=== PATIENT | male | born 1980 | race Caucasian/White ===

== ENCOUNTER 2024-09-04 12:24 | Inpatient (IN) | payer BC, MEDICAID ==
[~2024-09-04] VITALS: Ht 175.3 cm; Wt 131.8 kg
--- NOTE | 2024-09-04 12:38 | ED.PDOC ---
History of Present Illness HPI Comments 44-year-old male brought by paramedics because he has been having abdominal pain for the past 18 hours. Not related to food. Pain is 10/10 with no radiation of the abdominal pain. Denies nausea vomiting. Unable to vomit ever since he had the gastric sleeve done many years ago. History of hypertension. Denies any other symptoms. Time Seen by MD: 12:29 Primary Care Provider: KAROLINA Reviewed Notes: Nurses Notes, Medications, Allergies Allergies: Coded Allergies: NO KNOWN ALLERGIES (Unverified , 07/24/14) Information Source: Patient, Emergency Med Personnel Mode of Arrival: EMS Severity: Moderate Timing: Hours Duration: Since onset Past Medical History PAST MEDICAL HISTORY: HTN Surgical History: Denies all surgeries Family History Family History: Unknown Social History Smoker: Non-Smoker Alcohol: Denies ETOH Use Drugs: Denies Drug Use Constitutional: denies: chills, diaphoresis, fatigue, fever, malaise, sweats, weakness, others EENTM: denies: blurred vision, double vision, ear bleeding, ear discharge, ear drainage, ear pain, ear ringing, eye pain, eye redness, hearing loss, mouth pain, mouth swelling, nasal discharge, nose bleeding, nose congestion, nose pain, photophobia, tearing, throat pain, throat swelling, voice changes, others Respiratory: denies: cough, hemoptysis, orthopnea, SOB at rest, shortness of breath, SOB with excertion, stridor, wheezing, others Cardiovascular: denies: chest pain, dizzy spells, diaphoresis, Dyspnea on exertion, edema, irregular heart beat, left arm pain, lightheadedness, palpitations, PND, syncope, others Gastrointestinal: reports: abdominal pain; denies: abdomen distended, blood streaked bowels, constipated, diarrhea, dysphagia, difficulty swallowing, hematemesis, melena, nausea, poor appetite, poor fluid intake, rectal bleeding, rectal pain, vomiting, others Genitourinary: denies: burning, dysuria, flank pain, frequency, hematuria, incontinence, penile discharge, penile sore, pain, testicle pain, testicle swelling, urgency, others Neurological: denies: dizziness, fainting, headache, left sided numbness, left sided weakness, numbness, paresthesia, pre-existing deficit, right sided numbness, right sided weakness, seizure, speech problems, tingling, tremors, weakness, others Musculoskeletal: denies: back pain, gout, joint pain, joint swelling, muscle pain, muscle stiffness, neck pain, others Integumetry: denies: bruises, change in color, change in hair/nails, dryness, laceration, lesions, lumps, rash, wounds, others Allergic/Immunocompromised: denies: Difficulty Healing, Frequent Infections, Hives, Itching, others Hematologic/Lymphatic: denies: anemia, blood clots, easy bleeding, easy bruising, swollen glands, others Endocrine: denies: excessive hunger, excessive sweating, excessive thirst, excessive urination, flushing, intolerance to cold, intolerance to heat, unexpla ined weight gain, unexplained weight loss, others Psychiatric: denies: anxiety, bipolar disorder, depression, hopeless, panic disorder, schizophrenia, sleepless, suicidal, others Physical Exam General Appearance: Moderate Distress HEENT: Normal ENT Inspection, Pharynx Normal, TMs Normal Neck: Full Range of Motion, Non-Tender, Normal, Normal Inspection Respiratory: Chest Non-Tender, Lungs Clear, No Accessory Muscle Use, No Respiratory Distress, Normal Breath Sounds Cardiovascular: No Edema, No JVD, No Murmur, No Gallop, Normal Peripheral Pulses, Regular Rate/Rhythm Breast Exam: Deferred Gastrointestinal: Distended Genitalia: Deferred Pelvic: Deferred Rectal: Deferred Extremities: No calf tenderness, Normal capillary refill, Normal inspection, Normal range of motion, Non-tender, No pedal edema Musculoskeletal : Apperance: Normal Neurologic: Alert, mop worker II-XII nml as Tested, No Motor Deficits, Normal Affect, Normal Mood, No Sensory Deficits Cerebellar Function: NOT DONE Reflexes: NOT DONE Skin: Dry, Normal Color, Warm Peripheral Pulses: 3+ Radial (R), 3+ Radial (L) Lymphatic: No Adenopathy Was a procedure done? Was a procedure done?: No Differential Dx Considerations may include: Colitis Electrolyte imbalance X-Ray, Labs, Meds, VS Patient alert. Complaining of abdominal pain. Vitals stable. Answering all questions. Abdomen is distended. Establish intravenous access. Was given fluids. Was given morphine. Was given Zofran. Continue monitoring. Time of 1ST Reevaluation: 12:31 Reevaluation 1ST: Unchanged Patient Education/Counseling: Diagnosis, Treatment, Prognosis Family Education/Counseling: No Family Present Departure 1 Departure Time of Disposition: 12:32 Impression: Primary Impression: Acute abdominal pain Disposition: 09 ADMITTED INPATIENT Admit to: Med Surg Condition: Guarded Critical Care Note Critical Care Time?: No Stability Stability form required: No Heart Score Heart Score: Heart Score Response (Comments) Value History N/A 0 EKG N/A 0 Age N/A 0 Risk Factors N/A 0 Troponin N/A 0 Total 0 CARROL HERNÁNDEZ MD September 04, 2024 12:38
[2024-09-04 13:01] LABS: Basophils # (auto) 0.1 10 ^3/uL (0-0.2); Basophils % (auto) 0.5 % (0.0-2.0); Eosinophils # (auto) 0 10 ^3/uL (0-0.8); Hematocrit 46.9 % (41.0-53.0); Hemoglobin 15.8 g/dL (13.5-17.5); Lymphocytes # (auto) 1.5 10 ^3/uL (0.4-5.4); Lymphocytes % (auto) 7.4 % (10.0-50.0); Mean Corpuscular Hgb Conc. 33.7 g/dL (32.0-36.0); Monocytes # (auto) 1.4 10 ^3/uL (0-1.3); Monocytes % (auto) 6.8 % (0.0-12.0); Neutrophils # (auto) 17.2 10 ^3/uL (1.6-8.6); Neutrophils % (auto) 85.3 % (37.0-80.0); Platelet Count (auto) 290 10^3/uL (140-450); Red Blood Cells 5.27 10^6/uL (4.5-5.90); Red Cell Distribution Width 13.9 % (11.8-14.3); White Blood Cell 20.2 10^3/uL (4.4-10.8)
[2024-09-04 13:12] LABS: Chloride 104 mmol/L (98-107); Potassium 3.9 mmol/L (3.5-5.1)
[2024-09-04 13:13] LABS: Anion Gap 10 (5-15); Calcium 10.2 mg/dL (8.7-10.4); Carbon Dioxide 21 mmol/L (20-31)
[2024-09-04] MEDS: ONDANSETRON HCL 4 MG/2 ML VIAL IV ONE ×2 (13:13→15:11)
[2024-09-04] MEDS: MORPHINE SULFATE 4 MG/ML SYR/VIAL IV ONE ×2 (13:14→15:12)
[2024-09-04 13:18] LABS: Blood Urea Nitrogen 10 mg/dL (9-23); Glucose 127 mg/dL (74-106); Lipase 34 U/L (12-53); Sodium 135 mmol/L (136-145)
[2024-09-04 13:19] LABS: BUN/Creatinine Ratio 11.5 (10.0-20.0)
--- NOTE | 2024-09-04 13:55 | DVH ---
Exam: CT CT AB PEL WO CON-NO ORAL OR IV History: colitis Comparison Study: None Technique: Multidetector spiral CT of the abdomen was performed from lung bases to pubic symphysis. I maging was performed without IV contrast. Axial, coronal and sagittal multiplanar reformats were obta ined from the axial data set by the technologist. Radiation Dose : 1. Abdomen/Pelvis: CTDIvol 26.71 mGy, DLP 1508.82 mGy*cm. Findings: Evaluation of solid organs is limited due to lack of intravenous contrast use. Lung Bases: No acute or significant lung base finding. Normal heart size. No pleural or pericardial effusion. Liver: The liver is normal in size. No focal lesions. Gallbladder and Biliary Tree: Distended gallbladder with moderate inflammatory change. Spleen: Unremarkable Pancreas: The pancreas is grossly normal in appearance. Adrenal Glands: Unremarkable Kidneys: Probable bilateral renal parapelvic cysts. Few punctate nonobstructing stones in the left k idney measuring up to 0.1 cm. Bladder: Grossly unremarkable for degree of distention. Bowel: Gastric lap band in-situ. Small bowel and colon are normal in caliber and distribution. The ap pendix is not visualized; however, no secondary findings of acute appendicitis identified. Ascites: Absent Lymphadenopathy: No mesenteric, retroperitoneal or periportal lymphadenopathy. Abdominal Wall and Mesentery: Unremarkable. Vasculature: The visualized abdominal aorta is normal in size and caliber. Evaluation of abdominal a nd pelvic vessels is limited due to lack of intravenous contrast. Pelvic Organs: Unremarkable Musculoskeletal: No aggressive focal bony lesions, acute fractures or dislocation. Degenerative disc space narrowing at L5-S1. IMPRESSION: Distended gallbladder with moderate pericholecystic inflammatory change. Findings may represent rayna cystitis. Clinical correlation advised.
--- NOTE | 2024-09-04 14:34 | DVHHP2 ---
History of Present Illness Reason for Visit: abd pain History of Present Illness 44-year-old male past medical history hypertension gallstones surgical history lap band surgery in 2012 chief complaint patient states that for 18 hours he had some upper gastric right upper quadrant abdominal pain he states it feels like a bloating gas feeling he states it started after he ate some cheese pizza with pepperoni they states the pain has not improved so he called 911 to come to the ER for an examination no vomiting no diarrhea no fever no chest pain no tearing sensation in his abdomen or chest when evaluating patient's labs and imaging normal saline was given Flagyl ceftriaxone Zofran morphine white count was 20.2 sodium was 135 glucose was 127 otherwise CBC and CMP was unremarkable CT scan of the abdomen pelvis shows cholecystitis. We will provide IV antibiotics and also we will consult General surgery for evaluation Past Medical History See HPI above Past Surgical History See HPI above Family History Reviewed, non-contributory to the management of this case. Past Social History The patient lives at home, denies smoking, alcohol or illicit drugs abuse. Review of Systems Constitutional: No: Fever, Chills, Sweats, Weakness, Malaise, Other Eyes: No: Pain, Vision change, Conjunctivae inflammation, Eyelid inflammation, Other, Redness ENT: No: Ear pain, Ear discharge, Nose pain, Nose discharge, Nose congestion, Mouth pain, Mouth swelling, Throat pain, Throat swelling, Other Respiratory: No: Cough, Dry, Shortness of breath, SOB with excertion, Wheezing, Hemoptysis, Pleuritic Pain, Sputum, Wheezing, Other Cardiovascular: No: Chest Pain, Palpitations, Orthopnea, Paroxysmal Noc. Dyspnea, Edema, Lt Headedness, Other Gastrointestinal: Nausea, Vomiting, Abdominal Pain; No: Diarrhea, Constipation, Melena, Hematochezia, Other Genitourinary: No Dysuria, No Frequency, No Incontinence, No Hematuria, No Retention, No Other Musculoskeletal: No: other, neck pain, shoulder pain, arm pain, back pain, hand pain, leg pain, foot pain Skin: No: Rash, Lesions, Jaundice, Bruising, Other Neurological: No: Weakness, Numbness, Incoordination, Change in speech, Confusion, Seizures, Other Allergies: Coded Allergies: NO KNOWN ALLERGIES (Unverified , 07/24/14) Exam Vital Signs Vital Signs Date Time Temp Pulse Resp B/P (MAP) Pulse Ox O2 Delivery O2 Flow Rate FiO2 09/04/24 13:14 114 19 140/90 09/04/24 12:55 98 09/04/24 12:55 Room Air 09/04/24 12:28 98.3 98.3 General Appearance: Alert, Oriented X3, Cooperative, No acute distress HEENT: Atraumatic, PERRLA, EOMI, Mucous membr. moist/pink Respiratory: Clear to auscultation, Normal air movement Cardiovascular: Regular rate, Normal S1, Normal S2, No murmurs Abdominal: Normal bowel sounds, Other (Guarding and rebound tenderness) Extremities: No clubbing, No cyanosis, No edema, Normal pulses, No tenderness/swelling Skin: No rashes, No breakdown, No significant lesion Neuro: Normal gait, Normal speech, Strength at 5/5 X4 ext, Normal tone, Sensation intact, Cranial nerves 3-12 NL Psych/Mental Status: Mental status NL, Mood NL Labs/Xrays CT scan abdomen pelvis shows acute cholecystitis I reviewed labs, imaging CT scan abdomen pelvis, EKG and all diagnostic studies on this patient from ED records and the medical chart Labs Test 09/04/24 14:20 09/04/24 12:52 Range/Units White Blood Count 20.2 H 4.4-10.8 10^3/uL Red Blood Count 5.27 4.5-5.90 10^6/uL Hemoglobin 15.8 13.5-17.5 g/dL Hematocrit 46.9 41.0-53.0 % Mean Corpuscular Volume 89.0 80.0-100.0 fL Mean Corpuscular Hemoglobin 30.0 28.0-32.0 pg Mean Corpuscular Hemoglobin Concent 33.7 32.0-36.0 g/dL Red Cell Distribution Width 13.9 11.8-14.3 % Platelet Count 290 140-450 10^3/uL Mean Platelet Volume 8.3 6.9-10.8 fL Neutrophils (%) (Auto) 85.3 H 37.0-80.0 % Lymphocytes (%) (Auto) 7.4 L 10.0-50.0 % Monocytes (%) (Auto) 6.8 0.0-12.0 % Eosinophils (%) (Auto) 0.0 0.0-7.0 % Basophils (%) (Auto) 0.5 0.0-2.0 % Neutrophils # (Auto) 17.2 H 1.6-8.6 10 ^3/uL Lymphocytes # (Auto) 1.5 0.4-5.4 10 ^3/uL Monocytes # (Auto) 1.4 H 0-1.3 10 ^3/uL Eosinophils # (Auto) 0 0-0.8 10 ^3/uL Basophils # (Auto) 0.1 0-0.2 10 ^3/uL Nucleated Red Blood Cells 0.0 % Sodium Level 135 L 136-145 mmol/L Potassium Level 3.9 3.5-5.1 mmol/L Chloride Level 104 98-107 mmol/L Carbon Dioxide Level 21 20-31 mmol/L Anion Gap 10 5-15 Blood Urea Nitrogen 10 9-23 mg/dL Creatinine 0.87 0.700-1.30 mg/dL Glomerular Filtration Rate Calc 110 >90 mL/min BUN/Creatinine Ratio 11.5 10.0-20.0 Serum Glucose 127 H 74-106 mg/dL Calcium Level 10.2 8.7-10.4 mg/dL Lipase 34 12-53 U/L Assessment/Plan Assessment/Plan Acute cholecystitis found on ct scan abd pelvis ordered abd us fu results N.p.o. for now ordered Ceftriaxone and Flagyl ordered IV fluids ordered General surgery consult follow-up recs ordered Protonix epigastric pain ordered Type and screen, inr ordered Morphine and Zofran acute leukocytosis from gallbladder infection cont antibiotics chronic problems gallstones lap band sx in 2011 fen/ppx protonix scd ivf ivf plan admit to medicine for general surgery evaluation and gi consult Plan discussed with: Patient Date of Service: September 04, 2024 Billing Provider: ALEX PHIPPS DNP Common Visit Codes: [id number] INP/OBS CARE (HIGH) ALEX PHIPPS DNP September 04, 2024 14:34
[2024-09-04] MEDS: SODIUM CHLORIDE 0.9% 1,000 ML IV ONE ×2 (14:57→14:58)
[2024-09-04] MEDS: metroNIDAZOLE 500MG/100ML 100 ML IV ONE (14:58)
[2024-09-04] MEDS: cefTRIAXone 1GM/50ML D5W 50 ML IV ONE (14:58)
[2024-09-04] MEDS: cloNIDine HCL 0.1 MG TAB PO ONE (15:10)
[2024-09-04] MEDS ORDERED: DOCUSATE SOD 100 MG CAP PO PRN (15:15)
[2024-09-04] MEDS ORDERED: MORPHINE SULFATE INJ 2 MG/ml SYRG IV PRN (15:15)
[2024-09-04] MEDS ORDERED: NITROGLYCERIN 0.4 MG SL TAB SL PRN (15:15)
[2024-09-04 15:18] VITALS: PULSE 117; RESP 20; O2SAT 96
[2024-09-04] MEDS: SODIUM CHLORIDE 0.9% 1,000 ML IV SCH (15:29)
[2024-09-04 15:49] LABS: INR 0.98 (0.9-1.15); Prothrombin Time 10.4 sec (9.3-11.8)
[2024-09-04] MEDS: HYDROmorphone HCL 2 MG/ML VL/or syr IV ONE ×2 (16:47→22:37)
--- NOTE | 2024-09-04 16:58 | DVH ---
INDICATION: eval for right upper quad abd pain acute rayna TECHNIQUE: Ultrasound abdomen limited. Multiple real-time sonographic images of the abdomen were obta ined. COMPARISON: None FINDINGS: Heterogeneous parenchymal changes to the liver suggesting steatosis The liver measures 20. 6 cm. No intrahepatic biliary ductal dilatation is noted. The gallbladder wall measures 5.8 mm calcified gallstones which appear non mobile No gallstones or sludge is seen. Be a small polyp in the gallbladder The common duct is not visualized. Positive sono graphic Poon's sign The right kidney measures 12.4 cm cm. No hydronephrosis. The pancreas is not well visualized due to obscuration from bowel gas. The visualized portions of the IVC and aorta are grossly unremarkable. IMPRESSION: 1. Non mobile gallstones. Mild thickened gallbladder wall. Common bile duct is not visualized. Posi tive sonographic poon's sign. 2. Liver measures 20.6 cm length steatosis noted of the parenchyma.
[2024-09-04 18:43] LABS: Urine Bacteria None Seen /hpf (None Seen)
[2024-09-04] MEDS: hydrALAZINE HCL 20 MG/ML VL IV PRN (18:48)
[2024-09-04 19:03] LABS: Urine Blood TRACE /uL (Negative); Urine Clarity Clear (Clear); Urine Color Yellow (Yellow); Urine Mucus FEW (None Seen); Urine Protein, UAD Negative (Negative); Urine Specific Gravity 1.023 (1.001-1.035); Urine Squamous Epithelial Cell None Seen /hpf (<5); Urine Urobilinogen Normal (Negative); Urine WBC 1 /HPF (0-3); Urine pH 5.5 (5.0-9.0)
[2024-09-04 19:23] VITALS: PULSE 105; RESP 19; O2SAT 97
[2024-09-04] MEDS: MORPHINE SULFATE 4 MG/ML SYR/VIAL IV PRN (20:31)
[2024-09-04] MEDS: ONDANSETRON HCL 4 MG/2 ML VIAL IV PRN (20:33)
[2024-09-04 22:24] VITALS: BP 154/95; PULSE 142; PULSE 154; RESP 20; TEMP 99.1; O2SAT 95; O2SAT 96
[2024-09-04] MEDS: metroNIDAZOLE 500MG/100ML 100 ML IV SCH (22:36)
[2024-09-04] MEDS: METOPROLOL TARTRATE 1MG/1ML-5ML VIAL IV ONE (23:46)
[2024-09-05] VITALS (8 sets, daily range): BP systolic 101–153; BP diastolic 72–92; PULSE 88–149; RESP 19–20; TEMP 97.5–99.9; O2SAT 92–98
[2024-09-05] MEDS ORDERED: MONT-8 OR (00:02)
[2024-09-05] MEDS ORDERED: LOSA-533 PO (00:02)
[2024-09-05] MEDS ORDERED: LEVO25TA6 PO (00:02)
[2024-09-05 08:31] LABS: Basophils # (auto) 0.1 10 ^3/uL (0-0.2); Basophils % (auto) 0.3 % (0.0-2.0); Eosinophils # (auto) 0 10 ^3/uL (0-0.8); Eosinophils % (auto) 0.1 % (0.0-7.0); Hematocrit 45.5 % (41.0-53.0); Hemoglobin 15.2 g/dL (13.5-17.5); Lymphocytes # (auto) 1.5 10 ^3/uL (0.4-5.4); Lymphocytes % (auto) 5.6 % (10.0-50.0); Mean Corpuscular Hgb Conc. 33.4 g/dL (32.0-36.0); Mean Corpuscular Volume 89.8 fL (80.0-100.0); Monocytes # (auto) 2.4 10 ^3/uL (0-1.3); Neutrophils # (auto) 22.8 10 ^3/uL (1.6-8.6); Platelet Count (auto) 258 10^3/uL (140-450); Red Blood Cells 5.06 10^6/uL (4.5-5.90); Red Cell Distribution Width 14.4 % (11.8-14.3); White Blood Cell 26.8 10^3/uL (4.4-10.8)
[2024-09-05] MEDS: cefTRIAXone 1GM/50ML D5W 50 ML IV SCH (08:34)
[2024-09-05] MEDS: LOSARTAN POTASSIUM 25 MG TAB PO SCH (08:35)
[2024-09-05 08:52] LABS: Alanine Aminotransferase 32 U/L (7-40); Albumin 4.3 g/dL (3.2-4.8); Alkaline Phosphatase 71 U/L (46-116); Anion Gap 9 (5-15); Aspartate Aminotransferase 24 U/L (13-40); BUN/Creatinine Ratio 7.9 (10.0-20.0); Calcium 9.9 mg/dL (8.7-10.4); Carbon Dioxide 21 mmol/L (20-31); Potassium 4.2 mmol/L (3.5-5.1); Sodium 137 mmol/L (136-145)
[2024-09-05 09:00] LABS: Chloride 107 mmol/L (98-107); Glucose 129 mg/dL (74-106)
[2024-09-05 09:02] LABS: Bilirubin, Total 1.2 mg/dL (0.2-1.0); Blood Urea Nitrogen 7 mg/dL (9-23)
[2024-09-05] MEDS: LACTATED RINGER'S 1,000 ML IV ONE (09:15)
--- NOTE | 2024-09-05 09:50 | DVH ---
CHEST RADIOGRAPH Indication: history obesity Technique: Single frontal view of the chest was obtained COMPARISON: None FINDINGS: Lines and Tubes: None Lungs: Bibasilar subsegmental atelectasis. Pleura: No effusion. No pneumothorax. Cardiomediastinal contours: Unremarkable Bones: Unremarkable IMPRESSION: Bibasilar subsegmental atelectasis.
[2024-09-05] MEDS: [UNRECOGNIZED DRUG - OTHER] PO SCH (10:00)
[2024-09-05] MEDS: ASPirin 81 mg TAB PO SCH (10:00)
[2024-09-05] MEDS: NORETHINDRONE PO SCH (10:00)
[2024-09-05] MEDS: SUCCINYLCHOLINE CHLORIDE 20 MG/ML 10ML VIAL IV ONE (10:02)
[2024-09-05] MEDS ORDERED: PROPOFOL 10 MG/ML 20 ML IV ONE (10:04)
[2024-09-05] MEDS ORDERED: HYDROmorphone HCL 2 MG/ML VL/or syr ONE (10:04)
[2024-09-05] MEDS ORDERED: fentaNYL CITRATE 5 ML ONE (10:04)
[2024-09-05] MEDS: BUPIVACAINE 0.5% P/F INJ 10 ML VIAL ONE (11:40)
[2024-09-05] MEDS: LIDOCAINE W/ EPINEPHRINE 1% 20ML VIAL ONE (11:40)
[2024-09-05] MEDS ORDERED: ROCURONIUM 10MG/ML 10ML VIAL IV ONE (12:00)
[2024-09-05] MEDS ORDERED: ePHEDrine SULFATE 50 MG/ML AMP ONE (12:00)
[2024-09-05] MEDS ORDERED: DexAMETHasone SOD PHOS 10MG/1ML VIAL INJ ONE (12:13)
[2024-09-05] MEDS ORDERED: ONDANSETRON HCL 4 MG/2 ML VIAL ONE (12:13)
[2024-09-05] MEDS ORDERED: fentaNYL CITRATE 100 MCG/2 ML VL ONE (12:25)
[2024-09-05] MEDS ORDERED: SUGAMMADEX 200mg/2ml Vial (100MG/ML) IV ONE (12:55)
[2024-09-05] MEDS: ONDANSETRON HCL 4 MG/2 ML VIAL IV ONE (13:15)
[2024-09-05] MEDS: D5W/SOD CHL 0.45%/KCL 20MEQ 1,000 ML IV SCH (13:15)
[2024-09-05] MEDS ORDERED: MEPERIDINE HCL (25 MG/ML) 1ML VIAL IV PRN (13:15)
--- NOTE | 2024-09-05 13:15 | DVHINCON2 ---
Date of service: September 05, 2024 Family History: Cerebrovascular accident (CVA) G8 FATHER FH: emphysema FH: ovarian cancer G8 MOTHER Allergies: Coded Allergies: NO KNOWN ALLERGIES (Unverified , 07/24/14) Home Meds Reported Medications Montelukast Sodium (MONTELUKAST SODIUM) 10 Mg Tab, 10 MG OR DAILY, TAB 09/05/24 Losartan Potassium (Losartan Potassium) 25 Mg Tab, 25 MG PO DAILY for 30 Days, MG 09/05/24 Levothyroxine Sodium (Levothyroxine Sodium) 25 Mcg Tab, 75 MCG PO QAM, MCG 09/05/24 Current Medications Current Medications Medications (Trade) Dose Ordered Sig/Melanie Route PRN Reason Start Time Stop Time Status Last Admin Ceftriaxone Sodium 50 ml @ 100 mls/hr DAILY@09 IV 09/05/24 09:00 09/05/24 08:34 Metronidazole 100 ml @ 100 mls/hr Q8HR IV 09/04/24 22:00 09/05/24 04:57 Sodium Chloride 1,000 ml @ 120 mls/hr Q8H20M IV 09/04/24 15:15 09/04/24 23:46 Ondansetron HCl (Zofran) 4 mg Q4HP PRN IV NAUSEA / VOMITING 09/04/24 15:15 09/04/24 20:33 Docusate Sodium (Colace Capsule) 100 mg BIDPRN PRN PO FOR CONSTIPATION 09/04/24 15:15 Morphine Sulfate 4 mg Q4HPRN PRN IV SEVERE PAIN (7-10 PAIN SCALE) 09/04/24 15:15 UNV Nitroglycerin (Ntrostat Sublingual) 0.4 mg Q5MINP PRN SL FOR CHEST PAIN 09/04/24 15:15 Morphine Sulfate 4 mg Q4HPRN PRN IV SEVERE PAIN (7-10 PAIN SCALE) 09/04/24 15:30 09/05/24 08:34 Hydralazine HCl (Apresoline Injection) 10 mg Q6HP PRN IV SBP>150 09/04/24 18:45 09/05/24 05:53 Patient Own Medication 1 DAILY PO 09/05/24 10:00 Levothyroxine Sodium (Synthroid Tablet) 75 mcg QAM@0600 PO 09/05/24 22:00 Losartan Potassium (Cozaar Tablet) 25 mg DAILY PO 09/05/24 10:00 09/05/24 08:35 Montelukast Sodium (Singulair Tablet) 10 mg HS PO 09/05/24 22:00 Aspirin 81 mg DAILY PO 09/05/24 10:00 Vital Signs Vital Signs Date Time Temp Pulse Resp B/P (MAP) Pulse Ox O2 Delivery O2 Flow Rate FiO2 09/05/24 08:47 99.2 138 20 125/79 (94) 98 99.2 09/05/24 08:00 Room Air* 0 21 Labs/Diagnostic Data Labs Test 09/05/24 08:21 09/04/24 16:20 09/04/24 13:01 09/04/24 12:52 Range/Units White Blood Count 26.8 #H 4.4-10.8 10^3/uL Red Blood Count 5.06 4.5-5.90 10^6/uL Hemoglobin 15.2 13.5-17.5 g/dL Hematocrit 45.5 41.0-53.0 % Mean Corpuscular Volume 89.8 80.0-100.0 fL Mean Corpuscular Hemoglobin 30.0 28.0-32.0 pg Mean Corpuscular Hemoglobin Concent 33.4 32.0-36.0 g/dL Red Cell Distribution Width 14.4 H 11.8-14.3 % Platelet Count 258 140-450 10^3/uL Mean Platelet Volume 8.1 6.9-10.8 fL Neutrophils (%) (Auto) 85.0 H 37.0-80.0 % Lymphocytes (%) (Auto) 5.6 L 10.0-50.0 % Monocytes (%) (Auto) 9.0 0.0-12.0 % Eosinophils (%) (Auto) 0.1 0.0-7.0 % Basophils (%) (Auto) 0.3 0.0-2.0 % Neutrophils # (Auto) 22.8 H 1.6-8.6 10 ^3/uL Lymphocytes # (Auto) 1.5 0.4-5.4 10 ^3/uL Monocytes # (Auto) 2.4 H 0-1.3 10 ^3/uL Eosinophils # (Auto) 0 0-0.8 10 ^3/uL Basophils # (Auto) 0.1 0-0.2 10 ^3/uL Nucleated Red Blood Cells 0.0 % Sodium Level 137 136-145 mmol/L Potassium Level 4.2 3.5-5.1 mmol/L Chloride Level 107 98-107 mmol/L Carbon Dioxide Level 21 20-31 mmol/L Anion Gap 9 5-15 Blood Urea Nitrogen 7 L 9-23 mg/dL Creatinine 0.89 0.700-1.30 mg/dL Glomerular Filtration Rate Calc 109 >90 mL/min BUN/Creatinine Ratio 7.9 L 10.0-20.0 Serum Glucose 129 H 74-106 mg/dL Calcium Level 9.9 8.7-10.4 mg/dL Total Bilirubin 1.2 H 0.2-1.0 mg/dL Aspartate Amino Transferase (AST) 24 13-40 U/L Alanine Aminotransferase (ALT) 32 7-40 U/L Alkaline Phosphatase 71 46-116 U/L Total Protein 7.0 5.7-8.2 g/dL Albumin 4.3 3.2-4.8 g/dL Lactic Acid Level 1.4 0.4-2.0 mmol/L Urine Color Yellow Yellow Urine Clarity Clear Clear Urine pH 5.5 5.0-9.0 Urine Specific Maurice 1.023 1.001-1.035 Urine Protein Negative Negative Urine Ketones Negative Negative Urine Blood Trace H Negative /uL Urine Nitrite Negative Negative Urine Bilirubin Negative Negative Urine Urobilinogen Normal Negative mg/dL Urine Leukocyte Esterase Negative Negative /uL Urine RBC <1 0 - 3 /hpf Urine Microscopic WBC 1 0-3 /HPF Urine Squamous Epithelial Cells None seen <5 /hpf Urine Bacteria None seen None Seen /hpf Urine Mucus Few None Seen Urine Glucose Normal Normal mg/dL Prothrombin Time 10.4 9.3-11.8 sec Prothrombin Time INR 0.98 0.9-1.15 Lipase 34 12-53 U/L Assessment patient with sepsis secondary to cholelithiasis ans cholecystitis, exquisitely tender abdomen, needs emergency cholecystectomy, WBC markedly elevated, tachycardia. laparoscopic possibly open cholecystectomy, risks and complications explained in detail/. Plan discussed with: Patient, Spouse SERAFIN LUNA MD September 05, 2024 13:15
[2024-09-05] MEDS: ACETAMINOPHEN IV 1000 MG/100ML (10MG/ML) IV PRN (13:40)
[2024-09-05] MEDS: HYDROmorphone HCL 2 MG/ML VL/or syr IV PRN ×2 (13:59→18:39)
--- NOTE | 2024-09-05 15:46 | DVHOP ---
DATE OF SURGERY: 09/05/2024 PREOPERATIVE DIAGNOSES: Sepsis, cholelithiasis, cholecystitis. POSTOPERATIVE DIAGNOSES: Sepsis, cholelithiasis, cholecystitis. SURGEON: Jigar Bradshaw MD CORE MICROARCHITECT: Jose J Carlin. ANESTHESIA: General endotracheal, Dr. Bailey PROCEDURE: Laparoscopy, laparoscopic cholecystectomy. DESCRIPTION OF PROCEDURE: The patient had complained of abdominal pain preoperatively for several days, was admitted to the hospital, had a white count of 27,000, exquisitely tender abdomen, and was taken to the operating room urgently for a cholecystectomy to treat documented cholelithiasis and cholecystitis. Under general endotracheal anesthesia with the skin prepped and draped, a supraumbilical incision was made. Veress needle inserted by the hanging drop technique in order to establish pneumoperitoneum to 15 mmHg pressure by insufflation with carbon dioxide. With the abdomen fully distended, the needle was removed and replaced with a 5 mm trocar port through which a 0-degree viewing laparoscope was inserted under direct vision; 5 and 10 mm ports inserted at the right anterior axillary line at the level of the umbilicus and the subxiphoid midline skin respectively. Instrumentation was then introduced and laparoscopy was conducted. The laparoscopic examination was hampered by the patient's morbid obesity. However, no obvious unexpected pathology was encountered. The gallbladder was acutely inflamed, and areas were affected by gangrene. The gallbladder was aspirated of bile and the vial was submitted for cultures and sensitivity. Subsequently, with a great deal of difficulty due to the huge enlargement of the gallbladder as well as the enormous hepatomegaly and the patient's obesity, it was very difficult. However, we were able to visualize the cystic duct and cystic artery. The structures were skeletonized and dissected down to the hepatocystic triangle system to minimize the potential for an inadvertent injury to the common bile duct. The cystic duct and cystic artery were then divided between metallic clips and the gallbladder, which was partially intrahepatic, was resected from its liver bed and removed from the peritoneal cavity. The patient's right upper quadrant was profusely irrigated. Irrigant was aspirated. Hemostasis was meticulously accomplished and found to be complete. At the termination of the procedure, there was no evidence of bleeding from either the liver bed or from the port sites. A 10 mm Riki-Khan drain was placed underneath the right lobe of the liver and exteriorized through the 5 mm port site on the right flank and secured with a 2-0 nylon suture. The wounds were approximated by Monocryl sutures, Dermabond glue, and Steri-Strips. The patient remained stable throughout the procedure and left the operating room following an accurate needle and sponge counts. Family was thoroughly informed in the waiting area. MD KERON Bowens/HOLLY/ARJUN TID: [id number] RECEIPT: [id number]
[2024-09-05] MEDS: MONTELUKAST SODIUM 10 MG TAB PO SCH (21:10)
--- NOTE | 2024-09-05 22:29 | DVHPN2 ---
Reviewed: Care Plan, H&P, Labs, Medications, Previous Orders, Radiology Changes from previous H/P or p: No Changes General: Per HPI Eyes: No Pain, No Vision change, No Conjunctivae inflammation, No Eyelid inflammation, No Other, No Redness ENT: No Ear pain, No Ear discharge, No Nose pain, No Nose discharge, No Nose congestion, No Mouth pain, No Mouth swelling, No Throat pain, No Throat swelling, No Other Cardiovascular: No Chest Pain, No Palpitations, No Orthopnea, No Paroxysmal Noc. Dyspnea, No Edema, No Lt Headedness, No Other Respiratory: No Cough, No Dry, No Shortness of breath, No SOB with excertion, No Wheezing, No Hemoptysis, No Pleuritic Pain, No Sputum, No Other Gastrointestinal: Nausea, Vomiting, Abdominal Pain; No Diarrhea, No Constipation, No Melena, No Hematochezia, No Other Genitourinary: No Dysuria, No Frequency, No Incontinence, No Hematuria, No Retention, No Other Musculoskeletal: No other, No neck pain, No shoulder pain, No arm pain, No back pain, No hand pain, No leg pain, No foot pain Skin: No Rash, No Lesions, No Jaundice, No Bruising, No Other Objective Vitals Vital Signs Date Time Temp Pulse Resp B/P (MAP) Pulse Ox O2 Delivery O2 Flow Rate FiO2 09/05/24 21:00 97.6 125 20 137/87 (104) 96 97.6 09/05/24 20:00 Room Air* 0 21 Intake/Output Intake and Output 09/05/24 07:00 Intake Total 2550 ml Output Total 600 ml Balance 1950 ml Intake Oral 0 ml IV Total 2550 ml Output Urine Total 600 ml # Voids 2 General Appearance: Alert, Oriented X3, Cooperative Cardiovascular: Regular rate, Normal S1, Normal S2 Abdomen: Normal bowel sounds, Soft Neuro: Normal speech Medications Current Medications Medications Dose Ordered Sig/Melanie Route Start Time Stop Time Status Last Admin Dose Admin Ceftriaxone Sodium 50 ml @ 100 mls/hr DAILY@09 IV 09/05/24 09:00 09/05/24 08:34 100 MLS/HR Metronidazole 100 ml @ 100 mls/hr Q8HR IV 09/04/24 22:00 09/05/24 21:10 100 MLS/HR Ondansetron HCl 4 mg Q4HP PRN IV 09/04/24 15:15 09/04/24 20:33 4 MG Docusate Sodium 100 mg BIDPRN PRN PO 09/04/24 15:15 Morphine Sulfate 4 mg Q4HPRN PRN IV 09/04/24 15:15 UNV Nitroglycerin 0.4 mg Q5MINP PRN SL 09/04/24 15:15 Hydralazine HCl 10 mg Q6HP PRN IV 09/04/24 18:45 09/05/24 05:53 10 MG Patient Own Medication 1 DAILY PO 09/05/24 10:00 Levothyroxine Sodium 75 mcg QAM@0600 PO 09/05/24 22:00 Losartan Potassium 25 mg DAILY PO 09/05/24 10:00 09/05/24 08:35 25 MG Montelukast Sodium 10 mg HS PO 09/05/24 22:00 09/05/24 21:10 10 MG Aspirin 81 mg DAILY PO 09/05/24 10:00 Potassium Chloride/Dextrose/ Sod Cl 1,000 ml @ 120 mls/hr Q8H20M IV 09/05/24 13:15 09/05/24 13:15 120 MLS/HR Hydromorphone HCl 1 mg Q6HR PRN IV 09/05/24 18:30 09/05/24 18:39 1 MG Laboratory Results Laboratory Tests 09/05/24 08:21 Chemistry Test 09/05/24 08:21 Albumin 4.3 g/dL (3.2-4.8) Calcium Level 9.9 mg/dL (8.7-10.4) Total Protein 7.0 g/dL (5.7-8.2) LFT Test 09/05/24 08:21 Alanine Aminotransferase (ALT) 32 U/L (7-40) Alkaline Phosphatase 71 U/L (46-116) Aspartate Amino Transferase (AST) 24 U/L (13-40) Total Bilirubin 1.2 mg/dL (0.2-1.0) H Urinalysis Test 09/04/24 13:01 Urine Color Yellow (Yellow) Urine Clarity Clear (Clear) Urine pH 5.5 (5.0-9.0) Urine Specific [place] 1.023 (1.001-1.035) Urine Protein Negative (Negative) Urine Ketones Negative (Negative) Urine Blood Trace /uL (Negative) H Urine Nitrite Negative (Negative) Urine Bilirubin Negative (Negative) Urine Urobilinogen Normal mg/dL (Negative) Urine Leukocyte Esterase Negative /uL (Negative) Urine RBC <1 /hpf (0 - 3) Urine Microscopic WBC 1 /HPF (0-3) Urine Squamous Epithelial Cells None seen /hpf (<5) Urine Bacteria None seen /hpf (None Seen) Urine Mucus Few (None Seen) Urine Glucose Normal mg/dL (Normal) Microbiology Microbiology Date/Time Source Procedure Growth Status 09/04/24 14:20 Blood Blood Culture - Preliminary NO GROWTH AFTER 24 HOURS OF INCUBATION. Resulted Labs and/or images reviewed: Labs reviewed by me, Image(s) reviewed by me Assessment/Plan Assessment/Plan 44-year-old male past medical history hypertension gallstones surgical history lap band surgery in 2011 chief complaint patient states that for 18 hours he had some upper gastric right upper quadrant abdominal pain he states it feels like a bloating gas feeling he states it started after he ate some cheese pizza with pepperoni they states the pain has not improved so he called 911 to come to the ER for an examination no vomiting no diarrhea no fever no chest pain no tearing sensation in his abdomen or chest when evaluating patient's labs and imaging normal saline was given Flagyl ceftriaxone Zofran morphine white count was 20.2 sodium was 135 glucose was 127 otherwise CBC and CMP was unremarkable CT scan of the abdomen pelvis shows cholecystitis. Acute cholecystitis acute leukocytosis from gallbladder infection gallstones lap band sx in 2011 abd pain 09/05/2024 discussed with family member at bedside pt was in OR right after round nursing requested for Dilaudid, agreed Plan discussed with: Other (family member at bedside) My Orders Orders - GABRIELA FUENTES DO Procedure Category Date Status Time Hydromorphone PHA 09/05/24 In Process Injection (Dilaudid 18:30 Date of Service: September 05, 2024 Billing Provider: GABRIELA FUENTES DO Common Visit Codes: [id number] INP/OBS CARE(HIGH) GABRIELA FUENTES DO September 05, 2024 22:29
[2024-09-06] VITALS (8 sets, daily range): BP systolic 127–143; BP diastolic 80–95; PULSE 98–123; RESP 17–21; TEMP 97.5–98.6; O2SAT 95–98
[2024-09-06] MEDS: LEVOTHYROXINE SODIUM 25 MCG TAB PO SCH (00:50)
--- NOTE | 2024-09-06 07:30 | DVHPN2 ---
Subjective Date Seen: September 06, 2024 Post op day Post op day: 1 Patient reports: Other (nausea) General: Normal HNT: Normal Cardiovascular: Normal Respiratory: Normal Gastrointestinal: Nausea Genitourinary: Normal Musculoskeletal: Normal Neurological: Normal Objective Vitals Vital Sign Date Time Temp Pulse Resp B/P (MAP) Pulse Ox O2 Delivery O2 Flow Rate FiO2 09/06/24 05:00 97.6 114 20 143/93 (110) 98 97.6 09/05/24 20:00 Room Air* 0 21 Total Intake and Output 09/05/24 09/05/24 09/06/24 15:00 23:00 07:00 Intake Total 430 ml 460 ml 1025 ml Output Total 400 ml Balance 430 ml 60 ml 1025 ml Medications Current Medications Medications Dose Ordered Sig/Melanie Route Start Time Stop Time Status Last Admin Dose Admin Ceftriaxone Sodium 50 ml @ 100 mls/hr DAILY@09 IV 09/05/24 09:00 09/05/24 08:34 100 MLS/HR Metronidazole 100 ml @ 100 mls/hr Q8HR IV 09/04/24 22:00 09/06/24 05:30 100 MLS/HR Ondansetron HCl 4 mg Q4HP PRN IV 09/04/24 15:15 09/06/24 06:06 4 MG Docusate Sodium 100 mg BIDPRN PRN PO 09/04/24 15:15 Morphine Sulfate 4 mg Q4HPRN PRN IV 09/04/24 15:15 UNV Nitroglycerin 0.4 mg Q5MINP PRN SL 09/04/24 15:15 Hydralazine HCl 10 mg Q6HP PRN IV 09/04/24 18:45 09/05/24 05:53 10 MG Patient Own Medication 1 DAILY PO 09/05/24 10:00 Levothyroxine Sodium 75 mcg QAM@0600 PO 09/05/24 22:00 09/06/24 05:31 75 MCG Losartan Potassium 25 mg DAILY PO 09/05/24 10:00 09/05/24 08:35 25 MG Montelukast Sodium 10 mg HS PO 09/05/24 22:00 09/05/24 21:10 10 MG Aspirin 81 mg DAILY PO 09/05/24 10:00 Potassium Chloride/Dextrose/ Sod Cl 1,000 ml @ 120 mls/hr Q8H20M IV 09/05/24 13:15 09/05/24 13:15 120 MLS/HR Hydromorphone HCl 1 mg Q6HR PRN IV 09/05/24 18:30 09/06/24 00:51 1 MG General: Normal, Well developed, Well nourished, Mild distress, Obese Head/Eyes: Normal ENT: Normal Neck: Normal Lungs: Normal, Normal inspection Cardiovascular: Normal, Regular rate and rhythm Abdomen quadrants: RUQ Tenderness; LUQ Tenderness; LLQ Tenderness; RLQ Tenderness Extremities: Normal, No peripheral edema Skin: Normal, Normal inspection Neurological: Normal Labs and Microbiology Laboratory Tests 09/05/24 08:21 Test 09/05/24 08:21 Range/Units Serum Glucose 129 H 74-106 mg/dL Ass/Plan Labs and/or images reviewed: Labs reviewed by me, Image(s) reviewed by me Problems(with codes): (1) Cholecystitis (2) Cholecystitis with cholelithiasis (3) S/P cholecystectomy (4) Abdominal pain Assessment/Plan 09/06/24 s/p laparoscopic cholecystectomy abdomen appropriately tender, patient complaint of nausea when he has pain wound clean dry and intact passing flatus, NO BM Plan: patient to ambulate continue current treatment Prognosis: Good Plan discussed with patient, Dr. Bradshaw Visit Coding Surgery Date of Service if different f: September 06, 2024 Billing Provider: SERAFIN BRADSHAW MD Surgery Visit Codes: [id number] INP/OBS CARE(HIGH) JAUN BONILLA [employer] September 06, 2024 07:30
[2024-09-06 08:25] LABS: Basophils # (auto) 0 10 ^3/uL (0-0.2); Basophils % (auto) 0.1 % (0.0-2.0); Eosinophils # (auto) 0 10 ^3/uL (0-0.8); Eosinophils % (auto) 0.1 % (0.0-7.0); Hematocrit 42.2 % (41.0-53.0); Lymphocytes # (auto) 1.1 10 ^3/uL (0.4-5.4); Lymphocytes % (auto) 5.3 % (10.0-50.0); Mean Corpuscular Hemoglobin 30.2 pg (28.0-32.0); Mean Corpuscular Hgb Conc. 33.1 g/dL (32.0-36.0); Monocytes # (auto) 1.8 10 ^3/uL (0-1.3); Monocytes % (auto) 8.3 % (0.0-12.0); Neutrophils # (auto) 18.4 10 ^3/uL (1.6-8.6); Neutrophils % (auto) 86.2 % (37.0-80.0); Platelet Count (auto) 227 10^3/uL (140-450); Red Blood Cells 4.64 10^6/uL (4.5-5.90); Red Cell Distribution Width 14.1 % (11.8-14.3); White Blood Cell 21.3 10^3/uL (4.4-10.8)
[2024-09-06 09:39] LABS: Platelet Estimate Adequate; RBC Morphology Normal
--- NOTE | 2024-09-06 10:22 | DVHINCON2 ---
Date of service: September 05, [address] sandoval Reason for Consultation Hypoxemic respiratory failure History of Present Illness HPI The patient is a 44-year-old gentleman with multiple medical problems morbid obesity severe obstructive sleep apnea and uvuloplasty who presented with right upper quadrant pain and infected gallbladder. Patient underwent laparoscopic cholecystectomy and returned back to the floor for recovery. He is currently on oxygen at 4 L and complaining of severe dyspnea. Chest x-ray shows atelectasis Home Meds Reported Medications Montelukast Sodium (MONTELUKAST SODIUM) 10 Mg Tab, 10 MG OR DAILY, TAB 09/05/24 Losartan Potassium (Losartan Potassium) 25 Mg Tab, 25 MG PO DAILY for 30 Days, MG 09/05/24 Levothyroxine Sodium (Levothyroxine Sodium) 25 Mcg Tab, 75 MCG PO QAM, MCG 09/05/24 Past Medical History Cardiac: HTN Pulmonary: Asthma Central Nervous System: No pertinent Hx GI: No pertinent Hx Hemotology/Oncology: No pertinent Hx Hepatobiliary: No pertinent Hx Psychiatric: No pertinent Hx Musculoskeletal: No pertinent Hx Rheumotologic: No pertinent Hx Infectious Disease: No peritnent Hx ENT: No pertinent Hx Renal/: No pertinent Hx Endocrine: No pertinent Hx Dermatology: No pertinent Hx Past Surgical History: No pertinent Hx Family History: No pertinent Hx Patient Family History: Cerebrovascular accident (CVA) G8 FATHER FH: emphysema FH: ovarian cancer G8 MOTHER Review of Systems Constitutional: Weakness Ears, Nose, & Throat: No symptom reported Eyes: No symptom reported Pulmonary/Respiratory: Dyspnea, Cough Cardiovascular: No symptom reported Gastrointestinal: Abdominal Pain Genitourinary: No symptom reported Musculoskeletal: No symptom reported Skin: No symptom reported Psychiatric: No symptom reported Endocrine: No symptom reported Hemotologic/Lymphatic: No symptom reported H&P Exam Vital Signs Vital Signs Date Time Temp Pulse Resp B/P (MAP) Pulse Ox O2 Delivery O2 Flow Rate FiO2 09/06/24 09:12 98.6 120 17 132/95 (107) 95 98.6 09/06/24 08:00 Room Air* 0 21 General Appeara: Well developed, Well nourished, Normal Appearance, Obese Head Exam: Normal inspection Neck Exam: Normal inspection, Non-tender, Normal alignment Eye Exam: bilateral eye Normal inspection, bilateral eye PERRL Ear Exam: bilateral ear Auricle normal, bilateral ear Canal normal Nasal Exam: Normal inspection Mouth: Normal Inspection Pulmonary/Respiratory: Normal inspection, Normal breath sounds Cardiovascular/Chest: Normal inspection Peripheral Pulses: 4+ carotid (R), 4+ carotid (L) Rectal Exam: Deferred Labs/Xrays Labs Test 09/06/24 07:00 09/05/24 08:21 09/04/24 16:20 09/04/24 13:01 Range/Units White Blood Count 21.3 H 4.4-10.8 10^3/uL Red Blood Count 4.64 4.5-5.90 10^6/uL Hemoglobin 14.0 13.5-17.5 g/dL Hematocrit 42.2 41.0-53.0 % Mean Corpuscular Volume 91.0 80.0-100.0 fL Mean Corpuscular Hemoglobin 30.2 28.0-32.0 pg Mean Corpuscular Hemoglobin Concent 33.1 32.0-36.0 g/dL Red Cell Distribution Width 14.1 11.8-14.3 % Platelet Count 227 140-450 10^3/uL Mean Platelet Volume 8.8 6.9-10.8 fL Neutrophils (%) (Auto) 86.2 H 37.0-80.0 % Lymphocytes (%) (Auto) 5.3 L 10.0-50.0 % Monocytes (%) (Auto) 8.3 0.0-12.0 % Eosinophils (%) (Auto) 0.1 0.0-7.0 % Basophils (%) (Auto) 0.1 0.0-2.0 % Neutrophils # (Auto) 18.4 H 1.6-8.6 10 ^3/uL Lymphocytes # (Auto) 1.1 0.4-5.4 10 ^3/uL Monocytes # (Auto) 1.8 H 0-1.3 10 ^3/uL Eosinophils # (Auto) 0 0-0.8 10 ^3/uL Basophils # (Auto) 0 0-0.2 10 ^3/uL Nucleated Red Blood Cells 0.0 % Platelet Estimate Adequate Clumped Platelets Few Red Blood Cell Morphology Normal Total Bilirubin 0.6 0.2-1.0 mg/dL Sodium Level 137 136-145 mmol/L Potassium Level 4.2 3.5-5.1 mmol/L Chloride Level 107 98-107 mmol/L Carbon Dioxide Level 21 -31 mmol/L Anion Gap 9 5-15 Blood Urea Nitrogen 7 L 9-23 mg/dL Creatinine 0.89 0.700-1.30 mg/dL Glomerular Filtration Rate Calc 109 >90 mL/min BUN/Creatinine Ratio 7.9 L 10.0-20.0 Serum Glucose 129 H 74-106 mg/dL Calcium Level 9.9 8.7-10.4 mg/dL Aspartate Amino Transferase (AST) 24 13-40 U/L Alanine Aminotransferase (ALT) 32 7-40 U/L Alkaline Phosphatase 71 46-116 U/L Total Protein 7.0 5.7-8.2 g/dL Albumin 4.3 3.2-4.8 g/dL Lactic Acid Level 1.4 0.4-2.0 mmol/L Urine Color Yellow Yellow Urine Clarity Clear Clear Urine pH 5.5 5.0-9.0 Urine Specific [place] 1.023 1.001-1.035 Urine Protein Negative Negative Urine Ketones Negative Negative Urine Blood Trace H Negative /uL Urine Nitrite Negative Negative Urine Bilirubin Negative Negative Urine Urobilinogen Normal Negative mg/dL Urine Leukocyte Esterase Negative Negative /uL Urine RBC <1 0 - 3 /hpf Urine Microscopic WBC 1 0-3 /HPF Urine Squamous Epithelial Cells None seen <5 /hpf Urine Bacteria None seen None Seen /hpf Urine Mucus Few None Seen Urine Glucose Normal Normal mg/dL Test 09/04/24 12:52 Range/Units Prothrombin Time 10.4 9.3-11.8 sec Prothrombin Time INR 0.98 0.9-1.15 Lipase 34 12-53 U/L Microbiology Date/Time Source Procedure Growth Status 09/04/24 14:20 Blood Blood Culture - Preliminary NO GROWTH AFTER 24 HOURS OF INCUBATION. Resulted Assessment/Plan Plan Acute hypoxemic respiratory failure Morbid obesity Severe obstructive sleep apnea Atelectasis Acute cholecystitis status post cholecystectomy Patient is seen and examined Management plan supplemental O2 Keep sats above 90% Broad-spectrum antibiotics Rocephin Pain control Incentive spirometry Postop care Patient would benefit from a follow-up with the full set of PFTs when more stable Plan discussed with: Patient JONA BARCLAY MD September 06, 2024 10:21
--- NOTE | 2024-09-06 10:23 | DVHPN2 ---
Progress Note - Dictate Date Seen: September 06, 2024 Has the PT tested + for MRSA If YES, has PT been informed?: No Medical Necessity Reason Pt with a Central, PICC or Fol: No vital signs Vital Sign Date Time Temp Pulse Resp B/P (MAP) Pulse Ox O2 Delivery O2 Flow Rate FiO2 09/06/24 09:12 98.6 120 17 132/95 (107) 95 98.6 09/06/24 08:00 Room Air* 0 21 Total Intake and Output 09/05/24 09/05/24 09/06/24 14:59 22:59 06:59 Intake Total 430 ml 460 ml 1025 ml Output Total 400 ml Balance 430 ml 60 ml 1025 ml medications Current Medications Medications Dose Ordered Sig/Melanie Route Start Time Stop Time Status Last Admin Dose Admin Ceftriaxone Sodium 50 ml @ 100 mls/hr DAILY@09 IV 09/05/24 09:00 09/06/24 08:58 100 MLS/HR Metronidazole 100 ml @ 100 mls/hr Q8HR IV 09/04/24 22:00 09/06/24 05:30 100 MLS/HR Ondansetron HCl 4 mg Q4HP PRN IV 09/04/24 15:15 09/06/24 06:06 4 MG Docusate Sodium 100 mg BIDPRN PRN PO 09/04/24 15:15 Morphine Sulfate 4 mg Q4HPRN PRN IV 09/04/24 15:15 UNV Nitroglycerin 0.4 mg Q5MINP PRN SL 09/04/24 15:15 Hydralazine HCl 10 mg Q6HP PRN IV 09/04/24 18:45 09/05/24 05:53 10 MG Patient Own Medication 1 DAILY PO 09/05/24 10:00 Levothyroxine Sodium 75 mcg QAM@0600 PO 09/05/24 22:00 09/06/24 05:31 75 MCG Losartan Potassium 25 mg DAILY PO 09/05/24 10:00 09/06/24 08:59 25 MG Montelukast Sodium 10 mg HS PO 09/05/24 22:00 09/05/24 21:10 10 MG Aspirin 81 mg DAILY PO 09/05/24 10:00 09/06/24 08:59 81 MG Potassium Chloride/Dextrose/ Sod Cl 1,000 ml @ 120 mls/hr Q8H20M IV 09/05/24 13:15 09/05/24 13:15 120 MLS/HR Hydromorphone HCl 1 mg Q6HR PRN IV 09/05/24 18:30 09/06/24 07:27 1 MG laboratory and microbiology Laboratory Tests 09/06/24 07:00 09/05/24 08:21 Test 09/05/24 08:21 Range/Units Serum Glucose 129 H 74-106 mg/dL Assessment/Plan Acute hypoxemic respiratory failure Morbid obesity Severe obstructive sleep apnea Atelectasis Acute cholecystitis status post cholecystectomy Patient is seen and examined Management plan supplemental O2 Keep sats above 90% Broad-spectrum antibiotics Rocephin Pain control Incentive spirometry Postop care dvt proph Plan discussed with: Patient JONA BARCLAY MD September 06, 2024 10:23
[2024-09-07] VITALS (8 sets, daily range): BP systolic 103–129; BP diastolic 56–89; PULSE 87–111; RESP 18–20; TEMP 97–98.3; O2SAT 95–98
--- NOTE | 2024-09-07 12:31 | DVHPN2 ---
Progress Note Date Seen: Sep 07, 2024 Has the PT tested + for MRSA If YES, has PT been informed?: No Medical Necessity Reason Pt with a Central, PICC or Fol: No Objective vital signs Vital Sign Date Time Temp Pulse Resp B/P (MAP) Pulse Ox O2 Delivery O2 Flow Rate FiO2 09/07/24 09:25 87 18 129/82 09/07/24 09:00 97.5 98 97.5 09/07/24 07:51 Room Air* 0 21 Total Intake and Output 09/06/24 09/06/24 09/07/24 15:00 23:00 07:00 Intake Total 250 ml 700 ml 1300 ml Output Total 50 ml 25 ml Balance 200 ml 675 ml 1300 ml medications Current Medications Medications Dose Ordered Sig/Melanie Route Start Time Stop Time Status Last Admin Dose Admin Ceftriaxone Sodium 50 ml @ 100 mls/hr DAILY@09 IV 09/05/24 09:00 09/07/24 08:43 100 MLS/HR Metronidazole 100 ml @ 100 mls/hr Q8HR IV 09/04/24 22:00 09/07/24 05:55 100 MLS/HR Ondansetron HCl 4 mg Q4HP PRN IV 09/04/24 15:15 09/06/24 06:06 4 MG Docusate Sodium 100 mg BIDPRN PRN PO 09/04/24 15:15 Morphine Sulfate 4 mg Q4HPRN PRN IV 09/04/24 15:15 UNV Nitroglycerin 0.4 mg Q5MINP PRN SL 09/04/24 15:15 Hydralazine HCl 10 mg Q6HP PRN IV 09/04/24 18:45 09/05/24 05:53 10 MG Levothyroxine Sodium 75 mcg QAM@0600 PO 09/05/24 22:00 09/07/24 05:52 75 MCG Losartan Potassium 25 mg DAILY PO 09/05/24 10:00 09/07/24 08:43 25 MG Montelukast Sodium 10 mg HS PO 09/05/24 22:00 09/06/24 21:10 10 MG Aspirin 81 mg DAILY PO 09/05/24 10:00 09/07/24 08:43 81 MG Hydromorphone HCl 1 mg Q6HR PRN IV 09/05/24 18:30 09/07/24 08:55 1 MG laboratory and microbiology Laboratory Tests 09/06/24 07:00 09/05/24 08:21 Test 09/05/24 08:21 Range/Units Serum Glucose 129 H 74-106 mg/dL Problem List/Assessment/Plan Problem List/Assessment/Plan 09/07/24 DOING WELL, HAS AMBULATED, TOLERATING PO LIQUIDS,BETH DRAINAGE NON BILIOUS, WOUNDS CLEAR AND WELL APPROXIMATED Plan discussed with: Patient Dietary Evaluation Review Recommendations by RD: Dietary education by RD Comments: 1) Encourage optimal PO intake 2) Advance to low-fat diet when medically feasible, pending ST approval 3) Collect HbA1C 4) Refer to outpatient RD for weight management 5) Follow-up with gastroenterology 6) Continue to monitor I&O, labs, and skin integrity Expected Outcomes/Goals: 1) appetite and labs to improve 2) diet to advance 3) f/u in 2-3 days SERAFIN LUNA MD Sep 07, 2024 12:31
--- NOTE | 2024-09-07 14:42 | DVHPN2 ---
Progress Note - Dictate Date Seen: Sep 07, 2024 Has the PT tested + for MRSA If YES, has PT been informed?: No Medical Necessity Reason Pt with a Central, PICC or Fol: No vital signs Vital Sign Date Time Temp Pulse Resp B/P (MAP) Pulse Ox O2 Delivery O2 Flow Rate FiO2 09/07/24 13:00 98.3 100 20 117/80 (92) 95 98.3 09/07/24 07:51 Room Air* 0 21 Total Intake and Output 09/06/24 09/06/24 09/07/24 15:00 23:00 07:00 Intake Total 250 ml 700 ml 1300 ml Output Total 50 ml 25 ml Balance 200 ml 675 ml 1300 ml medications Current Medications Medications Dose Ordered Sig/Melanie Route Start Time Stop Time Status Last Admin Dose Admin Ceftriaxone Sodium 50 ml @ 100 mls/hr DAILY@09 IV 09/05/24 09:00 09/07/24 08:43 100 MLS/HR Metronidazole 100 ml @ 100 mls/hr Q8HR IV 09/04/24 22:00 09/07/24 14:07 100 MLS/HR Ondansetron HCl 4 mg Q4HP PRN IV 09/04/24 15:15 09/06/24 06:06 4 MG Docusate Sodium 100 mg BIDPRN PRN PO 09/04/24 15:15 Morphine Sulfate 4 mg Q4HPRN PRN IV 09/04/24 15:15 UNV Nitroglycerin 0.4 mg Q5MINP PRN SL 09/04/24 15:15 Hydralazine HCl 10 mg Q6HP PRN IV 09/04/24 18:45 09/05/24 05:53 10 MG Levothyroxine Sodium 75 mcg QAM@0600 PO 09/05/24 22:00 09/07/24 05:52 75 MCG Losartan Potassium 25 mg DAILY PO 09/05/24 10:00 09/07/24 08:43 25 MG Montelukast Sodium 10 mg HS PO 09/05/24 22:00 09/06/24 21:10 10 MG Aspirin 81 mg DAILY PO 09/05/24 10:00 09/07/24 08:43 81 MG Hydromorphone HCl 1 mg Q6HR PRN IV 09/05/24 18:30 09/07/24 08:55 1 MG laboratory and microbiology Laboratory Tests 09/06/24 07:00 09/05/24 08:21 Test 09/05/24 08:21 Range/Units Serum Glucose 129 H 74-106 mg/dL Assessment/Plan Acute hypoxemic respiratory failure Morbid obesity Severe obstructive sleep apnea Atelectasis Acute cholecystitis status post cholecystectomy Patient is seen and examined Management plan supplemental O2 Keep sats above 90% Broad-spectrum antibiotics Rocephin Pain control Incentive spirometry Postop care dvt proph Dietary Evaluation Review Recommendations by RD: Dietary education by RD Comments: 1) Encourage optimal PO intake 2) Advance to low-fat diet when medically feasible, pending ST approval 3) Collect HbA1C 4) Refer to outpatient RD for weight management 5) Follow-up with gastroenterology 6) Continue to monitor I&O, labs, and skin integrity Expected Outcomes/Goals: 1) appetite and labs to improve 2) diet to advance 3) f/u in 2-3 days Plan discussed with: Patient JONA BARCLAY MD Sep 07, 2024 14:42
--- NOTE | 2024-09-07 15:02 | DVHPN2 ---
Reviewed: Care Plan, H&P, Labs, Medications, Previous Orders, Radiology Changes from previous H/P or p: No Changes General: Per HPI Eyes: No Pain, No Vision change, No Conjunctivae inflammation, No Eyelid inflammation, No Other, No Redness ENT: No Ear pain, No Ear discharge, No Nose pain, No Nose discharge, No Nose congestion, No Mouth pain, No Mouth swelling, No Throat pain, No Throat swelling, No Other Cardiovascular: No Chest Pain, No Palpitations, No Orthopnea, No Paroxysmal Noc. Dyspnea, No Edema, No Lt Headedness, No Other Respiratory: No Cough, No Dry, No Shortness of breath, No SOB with excertion, No Wheezing, No Hemoptysis, No Pleuritic Pain, No Sputum, No Other Gastrointestinal: Nausea, Vomiting, Abdominal Pain; No Diarrhea, No Constipation, No Melena, No Hematochezia, No Other Genitourinary: No Dysuria, No Frequency, No Incontinence, No Hematuria, No Retention, No Other Musculoskeletal: No other, No neck pain, No shoulder pain, No arm pain, No back pain, No hand pain, No leg pain, No foot pain Skin: No Rash, No Lesions, No Jaundice, No Bruising, No Other Objective Vitals Vital Signs Date Time Temp Pulse Resp B/P (MAP) Pulse Ox O2 Delivery O2 Flow Rate FiO2 09/07/24 13:00 98.3 100 20 117/80 (92) 95 98.3 09/07/24 07:51 Room Air* 0 21 Intake/Output Intake and Output 09/07/24 07:00 Intake Total 2250 ml Output Total 75 ml Balance 2175 ml Intake Oral 1800 ml IV Total 450 ml Gastric Drainage Total 25 ml Drainage Total 50 ml # Voids 5 General Appearance: Alert, Oriented X3, Cooperative Cardiovascular: Regular rate, Normal S1, Normal S2 Abdomen: Normal bowel sounds, Soft Neuro: Normal speech Medications Current Medications Medications Dose Ordered Sig/Melanie Route Start Time Stop Time Status Last Admin Dose Admin Ceftriaxone Sodium 50 ml @ 100 mls/hr DAILY@09 IV 09/05/24 09:00 09/07/24 08:43 100 MLS/HR Metronidazole 100 ml @ 100 mls/hr Q8HR IV 09/04/24 22:00 09/07/24 14:07 100 MLS/HR Ondansetron HCl 4 mg Q4HP PRN IV 09/04/24 15:15 09/06/24 06:06 4 MG Docusate Sodium 100 mg BIDPRN PRN PO 09/04/24 15:15 Morphine Sulfate 4 mg Q4HPRN PRN IV 09/04/24 15:15 UNV Nitroglycerin 0.4 mg Q5MINP PRN SL 09/04/24 15:15 Hydralazine HCl 10 mg Q6HP PRN IV 09/04/24 18:45 09/05/24 05:53 10 MG Levothyroxine Sodium 75 mcg QAM@0600 PO 09/05/24 22:00 09/07/24 05:52 75 MCG Losartan Potassium 25 mg DAILY PO 09/05/24 10:00 09/07/24 08:43 25 MG Montelukast Sodium 10 mg HS PO 09/05/24 22:00 09/06/24 21:10 10 MG Aspirin 81 mg DAILY PO 09/05/24 10:00 09/07/24 08:43 81 MG Hydromorphone HCl 1 mg Q6HR PRN IV 09/05/24 18:30 09/07/24 08:55 1 MG Laboratory Results Laboratory Tests 09/05/24 08:21 09/06/24 07:00 Urinalysis Test 09/04/24 13:01 Urine Color Yellow (Yellow) Urine Clarity Clear (Clear) Urine pH 5.5 (5.0-9.0) Urine Specific [place] 1.023 (1.001-1.035) Urine Protein Negative (Negative) Urine Ketones Negative (Negative) Urine Blood Trace /uL (Negative) H Urine Nitrite Negative (Negative) Urine Bilirubin Negative (Negative) Urine Urobilinogen Normal mg/dL (Negative) Urine Leukocyte Esterase Negative /uL (Negative) Urine RBC <1 /hpf (0 - 3) Urine Microscopic WBC 1 /HPF (0-3) Urine Squamous Epithelial Cells None seen /hpf (<5) Urine Bacteria None seen /hpf (None Seen) Urine Mucus Few (None Seen) Urine Glucose Normal mg/dL (Normal) Microbiology Microbiology Date/Time Source Procedure Growth Status 09/05/24 12:26 Gallbladder Gram Stain - Final Resulted 09/05/24 12:26 Gallbladder Anaerobic Culture - Preliminary Resulted 09/05/24 12:26 Gallbladder Aerobic Culture - Preliminary Resulted 5/29/25 14:20 Blood Blood Culture - Preliminary NO GROWTH AFTER 72 HOURS OF INCUBATION. Resulted Assessment/Plan Assessment/Plan 44-year-old male past medical history hypertension gallstones surgical history lap band surgery in 2011 chief complaint patient states that for 18 hours he had some upper gastric right upper quadrant abdominal pain he states it feels like a bloating gas feeling he states it started after he ate some cheese pizza with pepperoni they states the pain has not improved so he called 911 to come to the ER for an examination no vomiting no diarrhea no fever no chest pain no tearing sensation in his abdomen or chest when evaluating patient's labs and imaging normal saline was given Flagyl ceftriaxone Zofran morphine white count was 20.2 sodium was 135 glucose was 127 otherwise CBC and CMP was unremarkable CT scan of the abdomen pelvis shows cholecystitis. Acute cholecystitis, s/p cholecystectomy acute leukocytosis from gallbladder infection gallstones lap band sx in 2011 abd pain obesity 09/05/2024 discussed with family member at bedside pt was in OR right after round nursing requested for Dilaudid, agreed 09/06/2024 pt is on clear liquid diet encouraged mobility still has no BM yet Plan discussed with: Patient My Orders Orders - GABRIELA FUENTES DO Procedure Category Date Status Time *Consult CONS 09/07/24 Verified / 14:59 Date of Service: September 06, 2024 Billing Provider: GABRIELA FUENTES DO Common Visit Codes: [id number] INP/OBS CARE(HIGH) GABRIELA FUENTES DO Sep 07, 2024 15:02
--- NOTE | 2024-09-07 15:15 | DVHPN2 ---
Reviewed: Care Plan, H&P, Labs, Medications, Previous Orders, Radiology Changes from previous H/P or p: No Changes General: Per HPI Eyes: No Pain, No Vision change, No Conjunctivae inflammation, No Eyelid inflammation, No Other, No Redness ENT: No Ear pain, No Ear discharge, No Nose pain, No Nose discharge, No Nose congestion, No Mouth pain, No Mouth swelling, No Throat pain, No Throat swelling, No Other Cardiovascular: No Chest Pain, No Palpitations, No Orthopnea, No Paroxysmal Noc. Dyspnea, No Edema, No Lt Headedness, No Other Respiratory: No Cough, No Dry, No Shortness of breath, No SOB with excertion, No Wheezing, No Hemoptysis, No Pleuritic Pain, No Sputum, No Other Gastrointestinal: Nausea, Vomiting, Abdominal Pain; No Diarrhea, No Constipation, No Melena, No Hematochezia, No Other Genitourinary: No Dysuria, No Frequency, No Incontinence, No Hematuria, No Retention, No Other Musculoskeletal: No other, No neck pain, No shoulder pain, No arm pain, No back pain, No hand pain, No leg pain, No foot pain Skin: No Rash, No Lesions, No Jaundice, No Bruising, No Other Objective Vitals Vital Signs Date Time Temp Pulse Resp B/P (MAP) Pulse Ox O2 Delivery O2 Flow Rate FiO2 09/07/24 13:00 98.3 100 20 117/80 (92) 95 98.3 09/07/24 07:51 Room Air* 0 21 Intake/Output Intake and Output 09/07/24 07:00 Intake Total 2250 ml Output Total 75 ml Balance 2175 ml Intake Oral 1800 ml IV Total 450 ml Gastric Drainage Total 25 ml Drainage Total 50 ml # Voids 5 General Appearance: Alert, Oriented X3, Cooperative Cardiovascular: Regular rate, Normal S1, Normal S2 Abdomen: Normal bowel sounds, Soft Neuro: Normal speech Medications Current Medications Medications Dose Ordered Sig/Melanie Route Start Time Stop Time Status Last Admin Dose Admin Ceftriaxone Sodium 50 ml @ 100 mls/hr DAILY@09 IV 09/05/24 09:00 09/07/24 08:43 100 MLS/HR Metronidazole 100 ml @ 100 mls/hr Q8HR IV 09/04/24 22:00 09/07/24 14:07 100 MLS/HR Ondansetron HCl 4 mg Q4HP PRN IV 09/04/24 15:15 09/06/24 06:06 4 MG Docusate Sodium 100 mg BIDPRN PRN PO 09/04/24 15:15 Morphine Sulfate 4 mg Q4HPRN PRN IV 09/04/24 15:15 UNV Nitroglycerin 0.4 mg Q5MINP PRN SL 09/04/24 15:15 Hydralazine HCl 10 mg Q6HP PRN IV 09/04/24 18:45 09/05/24 05:53 10 MG Levothyroxine Sodium 75 mcg QAM@0600 PO 09/05/24 22:00 09/07/24 05:52 75 MCG Losartan Potassium 25 mg DAILY PO 09/05/24 10:00 09/07/24 08:43 25 MG Montelukast Sodium 10 mg HS PO 09/05/24 22:00 09/06/24 21:10 10 MG Aspirin 81 mg DAILY PO 09/05/24 10:00 09/07/24 08:43 81 MG Hydromorphone HCl 1 mg Q6HR PRN IV 09/05/24 18:30 09/07/24 08:55 1 MG Laboratory Results Laboratory Tests 09/05/24 08:21 09/06/24 07:00 Urinalysis Test 09/04/24 13:01 Urine Color Yellow (Yellow) Urine Clarity Clear (Clear) Urine pH 5.5 (5.0-9.0) Urine Specific [place] 1.023 (1.001-1.035) Urine Protein Negative (Negative) Urine Ketones Negative (Negative) Urine Blood Trace /uL (Negative) H Urine Nitrite Negative (Negative) Urine Bilirubin Negative (Negative) Urine Urobilinogen Normal mg/dL (Negative) Urine Leukocyte Esterase Negative /uL (Negative) Urine RBC <1 /hpf (0 - 3) Urine Microscopic WBC 1 /HPF (0-3) Urine Squamous Epithelial Cells None seen /hpf (<5) Urine Bacteria None seen /hpf (None Seen) Urine Mucus Few (None Seen) Urine Glucose Normal mg/dL (Normal) Microbiology Microbiology Date/Time Source Procedure Growth Status 09/05/24 12:26 Gallbladder Gram Stain - Final Resulted 09/05/24 12:26 Gallbladder Anaerobic Culture - Preliminary Resulted 09/05/24 12:26 Gallbladder Aerobic Culture - Preliminary Resulted 5/29/25 14:20 Blood Blood Culture - Preliminary NO GROWTH AFTER 72 HOURS OF INCUBATION. Resulted Labs and/or images reviewed: Labs reviewed by me, Image(s) reviewed by me Assessment/Plan Assessment/Plan 44-year-old male past medical history hypertension gallstones surgical history lap band surgery in 2011 chief complaint patient states that for 18 hours he had some upper gastric right upper quadrant abdominal pain he states it feels like a bloating gas feeling he states it started after he ate some cheese pizza with pepperoni they states the pain has not improved so he called 911 to come to the ER for an examination no vomiting no diarrhea no fever no chest pain no tearing sensation in his abdomen or chest when evaluating patient's labs and imaging normal saline was given Flagyl ceftriaxone Zofran morphine white count was 20.2 sodium was 135 glucose was 127 otherwise CBC and CMP was unremarkable CT scan of the abdomen pelvis shows cholecystitis. 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
[2024-09-07] MEDS ORDERED: CHOL500021 OR (21:55)
[2024-09-08] VITALS (8 sets, daily range): BP systolic 124–139; BP diastolic 79–95; PULSE 87–114; RESP 17–21; TEMP 96.9–98.5; O2SAT 94–98
--- NOTE | 2024-09-08 12:09 | DVHPN2 ---
Subjective Date Seen: Sep 08, 2024 Post op day Post op day: 3 Patient reports: No new complaints, Other (nausea) General: Normal HNT: Normal Cardiovascular: Normal Respiratory: Normal Gastrointestinal: Nausea Genitourinary: Normal Musculoskeletal: Normal Neurological: Normal Objective Vitals Vital Sign Date Time Temp Pulse Resp B/P (MAP) Pulse Ox O2 Delivery O2 Flow Rate FiO2 09/08/24 10:23 110/78 09/08/24 10:13 92 20 09/08/24 08:30 97.8 98 97.8 09/08/24 08:10 Room Air* 0 21 Total Intake and Output 09/07/24 09/07/24 09/08/24 15:00 23:00 07:00 Intake Total 50 ml 1200 ml 900 ml Output Total 1002 ml Balance 50 ml 198 ml 900 ml Medications Current Medications Medications Dose Ordered Sig/Melanie Route Start Time Stop Time Status Last Admin Dose Admin Ceftriaxone Sodium 50 ml @ 100 mls/hr DAILY@09 IV 09/05/24 09:00 09/08/24 10:16 100 MLS/HR Metronidazole 100 ml @ 100 mls/hr Q8HR IV 09/04/24 22:00 09/08/24 06:01 100 MLS/HR Ondansetron HCl 4 mg Q4HP PRN IV 09/04/24 15:15 09/06/24 06:06 4 MG Docusate Sodium 100 mg BIDPRN PRN PO 09/04/24 15:15 Morphine Sulfate 4 mg Q4HPRN PRN IV 09/04/24 15:15 UNV Nitroglycerin 0.4 mg Q5MINP PRN SL 09/04/24 15:15 Hydralazine HCl 10 mg Q6HP PRN IV 09/04/24 18:45 09/05/24 05:53 10 MG Levothyroxine Sodium 75 mcg QAM@0600 PO 09/05/24 22:00 09/08/24 06:01 75 MCG Losartan Potassium 25 mg DAILY PO 09/05/24 10:00 09/08/24 10:23 25 MG Montelukast Sodium 10 mg HS PO 09/05/24 22:00 09/07/24 21:44 10 MG Aspirin 81 mg DAILY PO 09/05/24 10:00 09/08/24 10:23 81 MG Hydromorphone HCl 1 mg Q6HR PRN IV 09/05/24 18:30 09/08/24 10:13 1 MG General: Normal, Well developed, Well nourished, Mild distress, Obese Head/Eyes: Normal ENT: Normal Neck: Normal Lungs: Normal, Normal inspection Cardiovascular: Normal, Regular rate and rhythm Abdomen quadrants: RUQ Tenderness; LUQ Tenderness; LLQ Tenderness; RLQ Tenderness Extremities: Normal, No peripheral edema Skin: Normal, Normal inspection Neurological: Normal Labs and Microbiology Laboratory Tests 09/06/24 07:00 09/05/24 08:21 Test 09/05/24 08:21 Range/Units Serum Glucose 129 H 74-106 mg/dL Ass/Plan Labs and/or images reviewed: Labs reviewed by me, Image(s) reviewed by me Problem List 09/07/24 DOING WELL, HAS AMBULATED, TOLERATING PO LIQUIDS,BETH DRAINAGE NON BILIOUS, WOUNDS CLEAR AND WELL APPROXIMATED Assessment/Plan 09/06/24 s/p laparoscopic cholecystectomy abdomen appropriately tender, patient complaint of nausea when he has pain wound clean dry and intact passing flatus, NO BM Plan: patient to ambulate continue current treatment 09/08/24 s/p laparoscopic cholecystectomy abdomen soft, non distended, appropriately tender denies nausea and vomiting, tolerating diet passing gas,BM Plan: ok to discharge per surgery point of view no dressing over the drain may shower in 48 hours patient to follow up in clinic in 2 weeks Prognosis: Good Plan discussed with Dr. Bradshaw, Patient Visit Coding Surgery Date of Service if different f: Sep 08, 2024 Billing Provider: SERAFIN BRADSHAW MD Surgery Visit Codes: [id number] INP/OBS CARE(HIGH) JAUN BONILLA NP Sep 08, 2024 12:09
[2024-09-08] MEDS: HYDROmorphone HCL 2 MG/ML VL/or syr IV PRN (17:26)
--- NOTE | 2024-09-08 18:48 | DVHPN2 ---
Subjective C/o abdominal pain Reviewed: Care Plan, H&P, Labs, Medications, Previous Orders, Radiology Changes from previous H/P or p: Changes General: Per HPI Eyes: No Pain, No Vision change, No Conjunctivae inflammation, No Eyelid inflammation, No Other, No Redness ENT: No Ear pain, No Ear discharge, No Nose pain, No Nose discharge, No Nose congestion, No Mouth pain, No Mouth swelling, No Throat pain, No Throat swelling, No Other Cardiovascular: No Chest Pain, No Palpitations, No Orthopnea, No Paroxysmal Noc. Dyspnea, No Edema, No Lt Headedness, No Other Respiratory: No Cough, No Dry, No Shortness of breath, No SOB with excertion, No Wheezing, No Hemoptysis, No Pleuritic Pain, No Sputum, No Other Gastrointestinal: Nausea, Vomiting, Abdominal Pain; No Diarrhea, No Constipation, No Melena, No Hematochezia, No Other Genitourinary: No Dysuria, No Frequency, No Incontinence, No Hematuria, No Retention, No Other Musculoskeletal: No other, No neck pain, No shoulder pain, No arm pain, No back pain, No hand pain, No leg pain, No foot pain Skin: No Rash, No Lesions, No Jaundice, No Bruising, No Other Objective Vitals Vital Signs Date Time Temp Pulse Resp B/P (MAP) Pulse Ox O2 Delivery O2 Flow Rate FiO2 09/08/24 17:26 103 20 153/90 09/08/24 16:51 98.0 96 98.0 09/08/24 08:10 Room Air* 0 21 Intake/Output Intake and Output 09/08/24 07:00 Intake Total 2150 ml Output Total 1002 ml Balance 1148 ml Intake Oral 2000 ml IV Total 150 ml Output Urine Total 1000 ml Stool Total 2 ml # Voids 4 General Appearance: Alert, Oriented X3, Cooperative Cardiovascular: Regular rate, Normal S1, Normal S2 Abdomen: Normal bowel sounds, Soft Neuro: Normal speech Medications Current Medications Medications Dose Ordered Sig/Melanie Route Start Time Stop Time Status Last Admin Dose Admin Ceftriaxone Sodium 50 ml @ 100 mls/hr DAILY@09 IV 09/05/24 09:00 09/08/24 10:16 100 MLS/HR Metronidazole 100 ml @ 100 mls/hr Q8HR IV 09/04/24 22:00 09/08/24 14:20 100 MLS/HR Ondansetron HCl 4 mg Q4HP PRN IV 09/04/24 15:15 09/06/24 06:06 4 MG Docusate Sodium 100 mg BIDPRN PRN PO 09/04/24 15:15 Morphine Sulfate 4 mg Q4HPRN PRN IV 09/04/24 15:15 UNV Nitroglycerin 0.4 mg Q5MINP PRN SL 09/04/24 15:15 Hydralazine HCl 10 mg Q6HP PRN IV 09/04/24 18:45 09/05/24 05:53 10 MG Levothyroxine Sodium 75 mcg QAM@0600 PO 09/05/24 22:00 09/08/24 06:01 75 MCG Losartan Potassium 25 mg DAILY PO 09/05/24 10:00 09/08/24 10:23 25 MG Montelukast Sodium 10 mg HS PO 09/05/24 22:00 09/07/24 21:44 10 MG Aspirin 81 mg DAILY PO 09/05/24 10:00 09/08/24 10:23 81 MG Acetaminophen/ Hydrocodone Bitart 1 tab Q6HP PRN PO 09/08/24 14:30 Hydromorphone HCl 0.5 mg Q4HPRN PRN IV 09/08/24 14:30 09/08/24 17:26 0.5 MG Laboratory Results Laboratory Tests 09/05/24 08:21 09/06/24 07:00 Urinalysis Test 09/04/24 13:01 Urine Color Yellow (Yellow) Urine Clarity Clear (Clear) Urine pH 5.5 (5.0-9.0) Urine Specific [place] 1.023 (1.001-1.035) Urine Protein Negative (Negative) Urine Ketones Negative (Negative) Urine Blood Trace /uL (Negative) H Urine Nitrite Negative (Negative) Urine Bilirubin Negative (Negative) Urine Urobilinogen Normal mg/dL (Negative) Urine Leukocyte Esterase Negative /uL (Negative) Urine RBC <1 /hpf (0 - 3) Urine Microscopic WBC 1 /HPF (0-3) Urine Squamous Epithelial Cells None seen /hpf (<5) Urine Bacteria None seen /hpf (None Seen) Urine Mucus Few (None Seen) Urine Glucose Normal mg/dL (Normal) Microbiology Microbiology Date/Time Source Procedure Growth Status 09/05/24 12:26 Gallbladder Gram Stain - Final Resulted 09/05/24 12:26 Gallbladder Anaerobic Culture - Preliminary Resulted 09/05/24 12:26 Gallbladder Aerobic Culture - Preliminary Resulted 09/04/24 14:20 Blood Blood Culture - Preliminary NO GROWTH AFTER 72 HOURS OF INCUBATION. Resulted Assessment/Plan Assessment/Plan Acute cholecystitis s/p lap rayna Leukocytosis Acute hypoxemic respiratory failure Morbid obesity Severe obstructive sleep apnea Atelectasis Hypothyroidism HTN PLAN: IV antibiotics: Rocephin and Flagyl Cardiac diet Losartan Levothyroxine Pain: [place] prn, Dilaudid prn Full code Advanced directives discussed x 21 minutes Plan discussed with: Patient My Orders Orders - ALONDRA JOHNSON MD Procedure Category Date Status Time Hydrocodone-Acet PHA 09/08/24 In Process 10/325mg Tab ([place] 14:30 Hydromorphone PHA 09/08/24 In Process Injection (Dilaudid 14:30 Comprehensive LAB 09/09/24 Verified Metabolic Panel 04:00 Complete Blood Count LAB 09/09/24 Verified 04:00 Magnesium LAB 09/09/24 Verified 04:00 Date of Service: Sep 08, 2024 Billing Provider: ALONDRA JOHNSON MD Common Visit Codes: [id number] INP/OBS CARE(HIGH) ALONDRA JOHNSON MD Sep 08, 2024 18:48
--- NOTE | 2024-09-08 20:13 | DVHINCON2 ---
Date of service: Sep 08, [address] Brand [facility] Reason for Consultation Acute hypoxemic respiratory failure, sepsis. History of Present Illness The patient is a 44-year-old gentleman with multiple medical problems including hypertension, gallstones, morbid obesity and severe obstructive sleep apnea who presented to ED on 09/04/24 with c/o right upper quadrant pain. Workup in ED showed white count was 20.2, sodium was 135, glucose was 127; otherwise CBC and CMP was unremarkable. CT scan of the abdomen pelvis showed cholecystitis. He was started on IV antibiotics and admitted for further care. Patient underwent laparoscopic cholecystectomy and returned back to the floor for recovery. He was subsequently on oxygen at 4 L and complaining of severe dyspnea. Chest x- ray showed atelectasis. Pulmonary consultation is requested for evaluation and management of acute hypoxic respiratory failure and sepsis. Review of Systems: 14-point review of systems negative unless otherwise noted above. Past Medical History: hypertension, gallstones, morbid obesity and severe obstructive sleep apnea Past Surgical History: Lap band surgery in 2011, uvuloplasty. Medications: Reviewed. Allergies: Egg-derived products. Family History: CVA emphysema ovarian cancer Social History: Nonsmoker. No alcohol or illicit drug use. Family History: Cerebrovascular accident (CVA) G8 FATHER FH: emphysema FH: ovarian cancer G8 MOTHER Allergies: Coded Allergies: Egg-derived Products (Verified Allergy, Unknown, 09/07/24) PER PATIENT, ADVERSE REACTION IS SWOLLEN THROAT Home Meds Reported Medications Cholecalciferol (VITAMIN D) 5,000 Unit Tab, 03841 IU OR QWEEKLY, TAB 09/07/24 Montelukast Sodium (MONTELUKAST SODIUM) 10 Mg Tab, 10 MG OR DAILY, TAB 09/05/24 Losartan Potassium (Losartan Potassium) 25 Mg Tab, 25 MG PO DAILY for 30 Days, MG 09/05/24 Levothyroxine Sodium (Levothyroxine Sodium) 25 Mcg Tab, 75 MCG PO QAM, MCG 09/05/24 Current Medications Current Medications Medications (Trade) Dose Ordered Sig/Melanie Route PRN Reason Start Time Stop Time Status Last Admin Acetaminophen/ Hydrocodone Bitart ([place] 10/325MG Tab) 1 tab Q6HP PRN PO MODERATE PAIN (4-6 PAIN SCALE) 09/08/24 14:30 Hydromorphone HCl (Dilaudid Injection) 0.5 mg Q4HPRN PRN IV SEVERE PAIN (7-10 PAIN SCALE) 09/08/24 14:30 09/08/24 17:26 Vital Signs Vital Signs Date Time Temp Pulse Resp B/P (MAP) Pulse Ox O2 Delivery O2 Flow Rate FiO2 09/08/24 17:56 92 18 132/85 09/08/24 16:51 98.0 96 98.0 09/08/24 08:10 Room Air* 0 21 Physical Exam Gen.: Patient lying in bed in no apparent distress. Breathing on room air. Head: Normocephalic, atraumatic. Eyes: EOMI/PERRLA. Ears: Normal hearing. Normal anatomy. Neck/trachea: Trachea midline, supple. Nose: Normal external anatomy. Mouth: Moist mucous membranes. Chest: Decreased air entry bilaterally. No wheezing or rhonchi. Cardiovascular: Positive S1, positive S2. Regular rate and rhythm. Abdomen: Positive bowel sounds in all 4 quadrants. Soft, non-tender, non- distended. : Deferred. Rectal: Deferred. Skin: Warm, dry. Intact. Extremities: 2+ radial pulses bilaterally. No lower extremity edema. Neuro: Awake, alert, oriented x3. No gross motor or sensory deficits. Cranial nerves II through XII intact. Gait not assessed. Labs/Diagnostic Data Labs Test 09/06/24 07:00 09/05/24 08:21 09/04/24 16:20 09/04/24 13:01 Range/Units White Blood Count 21.3 H 4.4-10.8 10^3/uL Red Blood Count 4.64 4.5-5.90 10^6/uL Hemoglobin 14.0 13.5-17.5 g/dL Hematocrit 42.2 41.0-53.0 % Mean Corpuscular Volume 91.0 80.0-100.0 fL Mean Corpuscular Hemoglobin 30.2 28.0-32.0 pg Mean Corpuscular Hemoglobin Concent 33.1 32.0-36.0 g/dL Red Cell Distribution Width 14.1 11.8-14.3 % Platelet Count 227 140-450 10^3/uL Mean Platelet Volume 8.8 6.9-10.8 fL Neutrophils (%) (Auto) 86.2 H 37.0-80.0 % Lymphocytes (%) (Auto) 5.3 L 10.0-50.0 % Monocytes (%) (Auto) 8.3 0.0-12.0 % Eosinophils (%) (Auto) 0.1 0.0-7.0 % Basophils (%) (Auto) 0.1 0.0-2.0 % Neutrophils # (Auto) 18.4 H 1.6-8.6 10 ^3/uL Lymphocytes # (Auto) 1.1 0.4-5.4 10 ^3/uL Monocytes # (Auto) 1.8 H 0-1.3 10 ^3/uL Eosinophils # (Auto) 0 0-0.8 10 ^3/uL Basophils # (Auto) 0 0-0.2 10 ^3/uL Nucleated Red Blood Cells 0.0 % Platelet Estimate Adequate Clumped Platelets Few Red Blood Cell Morphology Normal Total Bilirubin 0.6 0.2-1.0 mg/dL Sodium Level 137 136-145 mmol/L Potassium Level 4.2 3.5-5.1 mmol/L Chloride Level 107 98-107 mmol/L Carbon Dioxide Level 21 20-31 mmol/L Anion Gap 9 5-15 Blood Urea Nitrogen 7 L 9-23 mg/dL Creatinine 0.89 0.700-1.30 mg/dL Glomerular Filtration Rate Calc 109 >90 mL/min BUN/Creatinine Ratio 7.9 L 10.0-20.0 Serum Glucose 129 H 74-106 mg/dL Calcium Level 9.9 8.7-10.4 mg/dL Aspartate Amino Transferase (AST) 24 13-40 U/L Alanine Aminotransferase (ALT) 32 7-40 U/L Alkaline Phosphatase 71 46-116 U/L Total Protein 7.0 5.7-8.2 g/dL Albumin 4.3 3.2-4.8 g/dL Lactic Acid Level 1.4 0.4-2.0 mmol/L Urine Color Yellow Yellow Urine Clarity Clear Clear Urine pH 5.5 5.0-9.0 Urine Specific [place] 1.023 1.001-1.035 Urine Protein Negative Negative Urine Ketones Negative Negative Urine Blood Trace H Negative /uL Urine Nitrite Negative Negative Urine Bilirubin Negative Negative Urine Urobilinogen Normal Negative mg/dL Urine Leukocyte Esterase Negative Negative /uL Urine RBC <1 0 - 3 /hpf Urine Microscopic WBC 1 0-3 /HPF Urine Squamous Epithelial Cells None seen <5 /hpf Urine Bacteria None seen None Seen /hpf Urine Mucus Few None Seen Urine Glucose Normal Normal mg/dL Test 09/04/24 12:52 Range/Units Prothrombin Time 10.4 9.3-11.8 sec Prothrombin Time INR 0.98 0.9-1.15 Lipase 34 12-53 U/L Microbiology Date/Time Source Procedure Growth Status 09/05/24 12:26 Gallbladder Gram Stain - Final Resulted 09/05/24 12:26 Gallbladder Anaerobic Culture - Preliminary Resulted 09/05/24 12:26 Gallbladder Aerobic Culture - Preliminary Resulted 09/04/24 14:20 Blood Blood Culture - Preliminary NO GROWTH AFTER 72 HOURS OF INCUBATION. Resulted Assessment Impression: Acute hypoxemic respiratory failure, resolved. Sepsis Atelectasis Morbid obesity, BMI 43 Severe obstructive sleep apnea Acute cholecystitis status post cholecystectomy Plan: Supplemental oxygen PRN Titrate to keep O2 sats above 92%. On Singulair Continue antibiotics Incentive spirometry for atelectasis Pain control Avoid oversedation Postop care Surgery recs appreciated Diet and lifestyle modifications for weight reduction Morbid Obesity - complicates all care Patient is stable for discharge from the pulmonary standpoint. DVT prophylaxis. Prognosis: Poor given patient's multiple co-morbidities. Rest of plan per hospitalist and other consultants. Thank you Dr. Brand for allowing me to participate in this patient's care. Further recommendations will depend on the patient's clinical course. Please do not hesitate to contact me if you have any questions or concerns. This medical document was created using an electronic medical record system with [employer] dictation system. Although these documentations are being carefully reviewed, there may still be some phonetic and typographical changes. The errors are purely typographical, due to imperfection on the software program, and do not reflect any compromise in the patient's medical care. Plan discussed with: Patient, Other (DONN Gibson/Dr. Brand) SILVANA TSE MD Sep 08, 2024 20:13
[2024-09-08] MEDS: HYDROcodone-ACET 10/325MG TAB PO PRN (20:42)
[2024-09-09 05:00] VITALS: BP 134/80; PULSE 86; RESP 19; TEMP 97.7; O2SAT 98
[2024-09-09 05:38] LABS: Basophils # (auto) 0.1 10 ^3/uL (0-0.2); Basophils % (auto) 0.7 % (0.0-2.0); Eosinophils # (auto) 0.7 10 ^3/uL (0-0.8); Hematocrit 38.7 % (41.0-53.0); Hemoglobin 12.7 g/dL (13.5-17.5); Lymphocytes # (auto) 2.6 10 ^3/uL (0.4-5.4); Lymphocytes % (auto) 23.2 % (10.0-50.0); Mean Corpuscular Hemoglobin 29.6 pg (28.0-32.0); Mean Corpuscular Hgb Conc. 32.9 g/dL (32.0-36.0); Monocytes % (auto) 9.4 % (0.0-12.0); Neutrophils # (auto) 6.7 10 ^3/uL (1.6-8.6); Neutrophils % (auto) 60.7 % (37.0-80.0); Platelet Count (auto) 295 10^3/uL (140-450); Red Cell Distribution Width 13.9 % (11.8-14.3); White Blood Cell 11.1 10^3/uL (4.4-10.8)
[2024-09-09 05:53] LABS: Alanine Aminotransferase 20 U/L (7-40); Albumin 3.6 g/dL (3.2-4.8); Alkaline Phosphatase 51 U/L (46-116); Anion Gap 9 (5-15); Aspartate Aminotransferase 15 U/L (13-40); BUN/Creatinine Ratio 14.5 (10.0-20.0); Blood Urea Nitrogen 11 mg/dL (9-23); Calcium 8.7 mg/dL (8.7-10.4); Carbon Dioxide 25 mmol/L (20-31); Chloride 104 mmol/L (98-107); Glucose 90 mg/dL (74-106); Magnesium 2.1 mg/dL (1.6-2.6); Potassium 3.6 mmol/L (3.5-5.1); Sodium 138 mmol/L (136-145); Total Protein 5.9 g/dL (5.7-8.2)
[2024-09-09 05:54] LABS: Bilirubin, Total 0.3 mg/dL (0.2-1.0)
[2024-09-09 08:00] VITALS: PULSE 103
[2024-09-09 08:49] VITALS: BP 128/82; PULSE 92; RESP 20; TEMP 97.9; O2SAT 94
--- NOTE | 2024-09-09 09:49 | DVHPN2 ---
Progress Note Date Seen: Sep 09, 2024 Has the PT tested + for MRSA If YES, has PT been informed?: No Medical Necessity Reason Pt with a Central, PICC or Fol: No Objective vital signs Vital Sign Date Time Temp Pulse Resp B/P (MAP) Pulse Ox O2 Delivery O2 Flow Rate FiO2 09/09/24 08:49 97.9 92 20 128/82 (97) 94 97.9 09/09/24 08:00 Room Air* 0 21 Total Intake and Output 09/08/24 09/08/24 09/09/24 15:00 23:00 07:00 Intake Total 150 ml 1600 ml 675 ml Output Total 40 ml 35 ml 750 ml Balance 110 ml 1565 ml -75 ml medications Current Medications Medications Dose Ordered Sig/Melanie Route Start Time Stop Time Status Last Admin Dose Admin Ceftriaxone Sodium 50 ml @ 100 mls/hr DAILY@09 IV 09/05/24 09:00 09/09/24 08:46 100 MLS/HR Metronidazole 100 ml @ 100 mls/hr Q8HR IV 09/04/24 22:00 09/09/24 06:21 100 MLS/HR Ondansetron HCl 4 mg Q4HP PRN IV 09/04/24 15:15 09/06/24 06:06 4 MG Docusate Sodium 100 mg BIDPRN PRN PO 09/04/24 15:15 Morphine Sulfate 4 mg Q4HPRN PRN IV 09/04/24 15:15 UNV Nitroglycerin 0.4 mg Q5MINP PRN SL 09/04/24 15:15 Hydralazine HCl 10 mg Q6HP PRN IV 09/04/24 18:45 09/05/24 05:53 10 MG Levothyroxine Sodium 75 mcg QAM@0600 PO 09/05/24 22:00 09/09/24 06:27 75 MCG Losartan Potassium 25 mg DAILY PO 09/05/24 10:00 09/09/24 08:44 25 MG Montelukast Sodium 10 mg HS PO 09/05/24 22:00 09/08/24 22:54 10 MG Aspirin 81 mg DAILY PO 09/05/24 10:00 09/09/24 08:44 81 MG Acetaminophen/ Hydrocodone Bitart 1 tab Q6HP PRN PO 09/08/24 14:30 09/09/24 04:56 1 TAB Hydromorphone HCl 0.5 mg Q4HPRN PRN IV 09/08/24 14:30 09/09/24 06:24 0.5 MG laboratory and microbiology Laboratory Tests 09/09/24 04:49 Test 09/09/24 04:49 Range/Units Serum Glucose 90 74-106 mg/dL Problem List/Assessment/Plan Problem List/Assessment/Plan 09/07/24 DOING WELL, HAS AMBULATED, TOLERATING PO LIQUIDS,BETH DRAINAGE NON BILIOUS, WOUNDS CLEAR AND WELL APPROXIMATED 09/09/24 doing well, ambulating, normal bladder and bowel function, ok to discharge Plan discussed with: Patient Dietary Evaluation Review Recommendations by RD: Dietary education by RD Comments: 1) Encourage optimal PO intake 2) Advance to low-fat diet when medically feasible, pending ST approval 3) Collect HbA1C 4) Refer to outpatient RD for weight management 5) Follow-up with gastroenterology 6) Continue to monitor I&O, labs, and skin integrity Expected Outcomes/Goals: 1) appetite and labs to improve 2) diet to advance 3) f/u in 2-3 days SERAFIN LUNA MD Sep 09, 2024 09:49
--- NOTE | 2024-09-09 10:48 | DVHDS2 ---
Discharge Summary Date of Admission September 04, 2024 at 15:14 Date of Discharge: Sep 09, 2024 Labs/Diagnostic Data: Laboratory Results Test 09/09/24 04:49 09/06/24 07:00 09/04/24 16:20 09/04/24 13:01 White Blood Count 11.1 10^3/uL (4.4-10.8) Red Blood Count 4.30 10^6/uL (4.5-5.90) Hemoglobin 12.7 g/dL (13.5-17.5) Hematocrit 38.7 % (41.0-53.0) Mean Corpuscular Volume 90.0 fL (80.0-100.0) Mean Corpuscular Hemoglobin 29.6 pg (28.0-32.0) Mean Corpuscular Hemoglobin Concent 32.9 g/dL (32.0-36.0) Red Cell Distribution Width 13.9 % (11.8-14.3) Platelet Count 295 10^3/uL (140-450) Mean Platelet Volume 7.9 fL (6.9-10.8) Neutrophils (%) (Auto) 60.7 % (37.0-80.0) Lymphocytes (%) (Auto) 23.2 % (10.0-50.0) Monocytes (%) (Auto) 9.4 % (0.0-12.0) Eosinophils (%) (Auto) 6.0 % (0.0-7.0) Basophils (%) (Auto) 0.7 % (0.0-2.0) Neutrophils # (Auto) 6.7 10 ^3/uL (1.6-8.6) Lymphocytes # (Auto) 2.6 10 ^3/uL (0.4-5.4) Monocytes # (Auto) 1.0 10 ^3/uL (0-1.3) Eosinophils # (Auto) 0.7 10 ^3/uL (0-0.8) Basophils # (Auto) 0.1 10 ^3/uL (0-0.2) Nucleated Red Blood Cells 0.0 % Sodium Level 138 mmol/L (136-145) Potassium Level 3.6 mmol/L (3.5-5.1) Chloride Level 104 mmol/L (98-107) Carbon Dioxide Level 25 mmol/L (20-31) Anion Gap 9 (5-15) Blood Urea Nitrogen 11 mg/dL (9-23) Creatinine 0.76 mg/dL (0.700-1.30) Glomerular Filtration Rate Calc 114 mL/min (>90) BUN/Creatinine Ratio 14.5 (10.0-20.0) Serum Glucose 90 mg/dL (74-106) Calcium Level 8.7 mg/dL (8.7-10.4) Magnesium Level 2.1 mg/dL (1.6-2.6) Total Bilirubin 0.3 mg/dL (0.2-1.0) Aspartate Amino Transferase (AST) 15 U/L (13-40) Alanine Aminotransferase (ALT) 20 U/L (7-40) Alkaline Phosphatase 51 U/L (46-116) Total Protein 5.9 g/dL (5.7-8.2) Albumin 3.6 g/dL (3.2-4.8) Platelet Estimate Adequate Clumped Platelets Few Red Blood Cell Morphology Normal Lactic Acid Level 1.4 mmol/L (0.4-2.0) Urine Color Yellow (Yellow) Urine Clarity Clear (Clear) Urine pH 5.5 (5.0-9.0) Urine Specific [place] 1.023 (1.001-1.035) Urine Protein Negative (Negative) Urine Ketones Negative (Negative) Urine Blood Trace /uL (Negative) Urine Nitrite Negative (Negative) Urine Bilirubin Negative (Negative) Urine Urobilinogen Normal mg/dL (Negative) Urine Leukocyte Esterase Negative /uL (Negative) Urine RBC <1 /hpf (0 - 3) Urine Microscopic WBC 1 /HPF (0-3) Urine Squamous Epithelial Cells None seen /hpf (<5) Urine Bacteria None seen /hpf (None Seen) Urine Mucus Few (None Seen) Urine Glucose Normal mg/dL (Normal) Test 09/04/24 12:52 Prothrombin Time 10.4 sec (9.3-11.8) Prothrombin Time INR 0.98 (0.9-1.15) Lipase 34 U/L (12-53) Other Laboratory Tests 09/09/24 04:49 Brief Hx & Hospital Course: Final diagnoses: Acute cholecystitis s/p lap rayna Leukocytosis Acute hypoxemic respiratory failure Morbid obesity Severe obstructive sleep apnea Atelectasis Hypothyroidism HTN 44-year-old male who was admitted for acute cholecystitis He required laparoscopic cholecystectomy It did well postoperatively Overnight he is doing good now We switched him from Dilaudid to oral Benge gradually and he is doing well He is stable for discharge Sent home on Augmentin and Benge for pain and ibuprofen Follow up with the surgeon in 1-2 weeks Condition at Discharge: Stable Final Diagnosis/Problems List Acute cholecystitis s/p lap rayna Leukocytosis Acute hypoxemic respiratory failure Morbid obesity Severe obstructive sleep apnea Atelectasis Hypothyroidism HTN Discharge Disposition: Home SNF Discharge Will this Physician continue t: No Discharge Statement: "Patient was advised to return to the ER or call 911 if any headaches, dizziness, shortness of breath, chest pain, abdominal pain, bleeding, fevers, or worsening of medical condition. Patient was counseled about treatment plan, medications, possible side effects, patientverbalized understanding. All questions were answered to the best of my ability. This discharge took greater then 30 minutes in planning, reviewing documentation, counseling the patient, and discussing with other team members." ASSESSMENT ASSESSMENT Assessment Date of Service: Sep 09, 2024 Billing Provider: ALONDRA JOHNSON MD Common Visit Codes: 81062-LNV/OBS DISCH DAY >30min ALONDRA JOHNSON MD Sep 09, 2024 10:48
[2024-09-09] MEDS ORDERED: AUG875T PO (10:49)
[2024-09-09] MEDS ORDERED: HYDR-4902 PO (10:49)
[2024-09-09] MEDS ORDERED: IBUP1TAB5 PO (10:49)
[2024-09-09 12:42] VITALS: BP 120/72; PULSE 61; RESP 19; TEMP 98.5; O2SAT 94
[2024-09-09 14:01] VITALS: BP 120/72; PULSE 61; RESP 19; TEMP 98.5; O2SAT 94
--- NOTE | 2024-09-09 20:30 | DVHPN2 ---
Progress Note - Dictate Date Seen: Sep 09, 2024 Has the PT tested + for MRSA If YES, has PT been informed?: No Medical Necessity Reason Pt with a Central, PICC or Fol: No Subjective Patient seen and examined at bedside. Breathing comfortably on room air. Overnight events reviewed. vital signs Vital Sign Date Time Temp Pulse Resp B/P (MAP) Pulse Ox O2 Delivery O2 Flow Rate FiO2 09/09/24 14:01 98.5 61 19 94 09/09/24 12:42 120/72 (88) 09/09/24 08:00 Room Air* 0 21 Total Intake and Output 09/08/24 09/08/24 09/09/24 15:00 23:00 07:00 Intake Total 150 ml 1600 ml 675 ml Output Total 40 ml 35 ml 750 ml Balance 110 ml 1565 ml -75 ml medications Current Medications Medications Dose Ordered Sig/Melanie Route Start Time Stop Time Status Last Admin Dose Admin Morphine Sulfate 4 mg Q4HPRN PRN IV 09/04/24 15:15 UNV objective Gen.: Patient lying in bed in no apparent distress. Breathing on room air. Head: Normocephalic, atraumatic. Eyes: EOMI/PERRLA. Ears: Normal hearing. Normal anatomy. Neck/trachea: Trachea midline, supple. Nose: Normal external anatomy. Mouth: Moist mucous membranes. Chest: Decreased air entry bilaterally. No wheezing or rhonchi. Cardiovascular: Positive S1, positive S2. Regular rate and rhythm. Abdomen: Positive bowel sounds in all 4 quadrants. Soft, non-tender, non- distended. : Deferred. Rectal: Deferred. Skin: Warm, dry. Intact. Extremities: 2+ radial pulses bilaterally. No lower extremity edema. Neuro: Awake, alert, oriented x3. No gross motor or sensory deficits. Cranial nerves II through XII intact. Gait not assessed. laboratory and microbiology Laboratory Tests 09/09/24 04:49 Test 09/09/24 04:49 Range/Units Serum Glucose 90 74-106 mg/dL Assessment/Plan Impression: Acute hypoxemic respiratory failure, resolved. Sepsis Atelectasis Morbid obesity, BMI 43 Severe obstructive sleep apnea Acute cholecystitis status post cholecystectomy Events: Remains on room air Supplemental oxygen PRN Complete antibiotics Continue Singulair Incentive spirometry Pain control Avoid oversedation Surgery recs appreciated. Patient is stable for discharge from the pulmonary standpoint. Labs and imaging reviewed. Rest of plan as noted below. Plan: Supplemental oxygen PRN Titrate to keep O2 sats above 92%. On Singulair Complete antibiotics Incentive spirometry for atelectasis Pain control Avoid oversedation Postop care Surgery recs appreciated Diet and lifestyle modifications for weight reduction Morbid Obesity - complicates all care DVT prophylaxis. Prognosis: Guarded given patient's multiple co-morbidities. Rest of plan per hospitalist and other consultants. Thank you Dr. Brand for allowing me to participate in this patient's care. Further recommendations will depend on the patient's clinical course. Please do not hesitate to contact me if you have any questions or concerns. This medical document was created using an electronic medical record system with [employer] dictation system. Although these documentations are being carefully reviewed, there may still be some phonetic and typographical changes. The errors are purely typographical, due to imperfection on the software program, and do not reflect any compromise in the patient's medical care. Dietary Evaluation Review Recommendations by RD: Dietary education by RD Comments: 1) Encourage optimal PO intake 2) Advance to low-fat diet when medically feasible, pending ST approval 3) Collect HbA1C 4) Refer to outpatient RD for weight management 5) Follow-up with gastroenterology 6) Continue to monitor I&O, labs, and skin integrity Expected Outcomes/Goals: 1) appetite and labs to improve 2) diet to advance 3) f/u in 2-3 days Plan discussed with: Patient, Other (DONN Gibson) SILVANA TSE MD Sep 09, 2024 20:30
== END 2024-09-09 14:54 | disposition home or self-care (01) | DRG 853 ==
LOC: EDUNIT# 12:24 → ER 12:24 → EDBD 12:24 → OVERFLOW 15:14 → TELE-WESTW 15:19
PROVIDERS: ADMIT Internal Medicine Geriatric Medicine; ATTEND Internal Medicine Geriatric Medicine
PROC: 0FT44ZZ Resection of Gallbladder, Percutaneous Endoscopic Approach (ICD-10-PCS; principal; 2024-09-05 12:00)
DX: A41.9 Sepsis, unspecified organism (principal); J96.01 Acute respiratory failure with hypoxia; J98.11 Atelectasis; K80.12 Calculus of gallbladder with acute and chronic cholecystitis without obstruction; Z68.41 Body mass index [BMI] 40.0-44.9, adult; G47.33 Obstructive sleep apnea (adult) (pediatric); E66.01 Morbid (severe) obesity due to excess calories; E03.9 Hypothyroidism, unspecified; I10 Essential (primary) hypertension; J45.909 Unspecified asthma, uncomplicated; Z82.3 Family history of stroke; Z82.5 Family history of asthma and other chronic lower respiratory diseases
CPT/HCPCS: 36415; 71045; 74176; 76705; 80048; 80053; 81001; 82247; 83605; 83690; 83735; 85025; 85610; 86850; 86900; 86901; 87040; 87070; 87075; 87205; 96374; 96375; G0378; J0131; J0330; J1100; J2405; J2704; J3490